=== PATIENT | male | born 1950 | race Caucasian/White ===

== ENCOUNTER 2020-02-15 09:45 | Inpatient (IN) ==
[2020-02-15] MEDS ORDERED: SODIUM CHLORIDE 0.9% 1000ML 1,000 ML IV SCH ×2 (10:15→13:30)
[2020-02-15 10:21] LABS: Basophils # (auto) 0.03 K/uL (0-0.2); Basophils % (auto) 0.3 %; Eosinophils # (auto) 0.14 K/uL (0-0.5); Eosinophils % (auto) 1.5 %; Hemoglobin 17.1 g/dL (14.0-18.0); Immature Granulocytes # (auto) 0.04 K/uL (0.00-0.02); Immature Granulocytes % (auto) 0.4 %; Lymphocytes # (auto) 0.82 K/uL (1.2-3.4); Mean Corpuscular Hemoglobin 29.3 pg (25-34); Mean Corpuscular Hgb Conc 34.2 g/dL (32-36); Mean Corpuscular Volume 85.6 fL (80-100); Mean Platelet Volume 11.7 fL (7.4-10.4); Monocytes # (auto) 0.49 K/uL (0.11-0.59); Monocytes % (auto) 5.4 %; Neutrophils # (auto) 7.57 K/uL (1.4-6.5); Neutrophils % (auto) 83.4 %; Platelet Count 160 K/uL (130-400); RDW Coefficient of Variation 13.5 % (11.5-14.5); RDW Standard Deviation 41.9 fL (36.4-46.3); Red Blood Count 5.84 M/uL (4.7-6.1); White Blood Count 9.09 K/uL (4.8-10.8)
--- NOTE | 2020-02-15 10:24 | Emergency Department Note ---
History of Present Illness General Chief complaint: Syncope (Near Syncope) Stated complaint: PASSING OUT Time Seen by Provider: 02/15/20 10:01 History of Present Illness Provider complaint: Syncope twice Onset (ago): hour(s) 2 (One episode at 7 AM and one episode at 7:30 AM) Associated symptoms: + diaphoresis; no chest pain, no cough, no fever/chills, no headaches, no nausea/vomiting and no shortness of breath 70-year-old male presents emergency department for syncope. Patient reports he had 2 syncopal episodes today 1 at 7 AM and 1 at 730. Patient reports he possi rita hit his head. He denies any chest pain, difficulty breathing, hemoptysis, recent travel, nausea, vomiting, diarrhea, melena, hematochezia, hematuria, loss of taste or smell. Home Medications Home Medications Medication Instructions Recorded Confirmed Type atorvastatin 10 mg PO DAILY 02/15/20 02/15/20 History docusate sodium 100 mg PO BID 02/15/20 02/15/20 History losartan 25 mg PO BID 02/15/20 02/15/20 History metformin 1,000 mg PO BID 02/15/20 02/15/20 History multivitamin 1 tab PO DAILY 02/15/20 02/15/20 History tamsulosin 0.4 mg PO QPM 02/15/20 02/15/20 History Allergies Allergy/AdvReac Type Severity Reaction Status Date / Time No Known Allergies Allergy Unverified 02/15/20 11:16 Past Med/Surg History Medical History (Updated 02/15/20 @ 12:17 by Florin Rendon MD) Diabetes HLD (hyperlipidemia) HTN (hypertension) No pertinent family history Surgical History (Updated 02/15/20 @ 10:20 by Kevin Blankenship) No pertinent past surgical history Social History Preferred Language: Icelandic Feels Safe at Home: Yes Smoking Status: Former smoker Review of Systems A total of 10 systems reviewed and were otherwise negative Physical Exam Vital Signs Vital Signs - 24 hr 02/15/20 09:50 02/15/20 10:18 02/15/20 10:21 Temperature 36.8 C Temperature Source Oral Pulse Rate - Lying Pulse Rate - Sitting Pulse Rate - Standing Pulse Rate 64 58 L Pulse Rate [Right Finger] 58 L Pulse Rate from SpO2 Sensor Pulse Rhythm Regular Pulse Strength Normal Respiratory Rate 20 24 Respiratory Effort / Characteristics Non-Labored Spontaneous Respiratory Depth Normal Respiratory Pattern Regular Blood Pressure - Lying Blood Pressure - Sitting Blood Pressure- Standing Blood Pressure 114/70 Blood Pressure [Right Arm] 117/63 Blood Pressure Mean 84 Blood Pressure Mean [Right Arm] 81 Blood Pressure Position Sitting Pulse Oximetry 98 96 Oxygen Delivery Method Room Air Room Air Room Air Sepsis Recent Fever Within 48 Hours No Sepsis New/Unexplained Change in Mental Status No Sepsis Action Taken by Nursing No Action Required 02/15/20 11:00 02/15/20 11:30 02/15/20 12:00 Temperature Temperature Source Pulse Rate - Lying Pulse Rate - Sitting Pulse Rate - Standing Pulse Rate 51 L 50 L 49 L Pulse Rate [Right Finger] Pulse Rate from SpO2 Sensor 50 L 49 L Pulse Rhythm Pulse Strength Respiratory Rate 17 12 21 Respiratory Effort / Characteristics Respiratory Depth Respiratory Pattern Blood Pressure - Lying Blood Pressure - Sitting Blood Pressure- Standing Blood Pressure 128/54 L 112/61 121/58 L Blood Pressure [Right Arm] Blood Pressure Mean 66 81 77 Blood Pressure Mean [Right Arm] Blood Pressure Position Pulse Oximetry 97 98 96 Oxygen Delivery Method Sepsis Recent Fever Within 48 Hours Sepsis New/Unexplained Change in Mental Status Sepsis Action Taken by Nursing 02/15/20 12:10 Temperature Temperature Source Pulse Rate - Lying 54 L Pulse Rate - Sitting 66 Pulse Rate - Standing 70 Pulse Rate Pulse Rate [Right Finger] Pulse Rate from SpO2 Sensor Pulse Rhythm Pulse Strength Respiratory Rate Respiratory Effort / Characteristics Respiratory Depth Respiratory Pattern Blood Pressure - Lying 112/59 L Blood Pressure - Sitting 122/62 Blood Pressure- Standing 130/54 L Blood Pressure Blood Pressure [Right Arm] Blood Pressure Mean Blood Pressure Mean [Right Arm] Blood Pressure Position Pulse Oximetry Oxygen Delivery Method Sepsis Recent Fever Within 48 Hours Sepsis New/Unexplained Change in Mental Status Sepsis Action Taken by Nursing Physical Exam GENERAL: He is oriented to person, place, and time. He appears well-developed and well-nourished. He does not appear distressed. HENT: Exam performed. - Head: Normocephalic and atraumatic. - Right Ear: External ear normal. No mastoid tenderness. - Left Ear: External ear normal. No mastoid tenderness. - Mouth/Throat: The oropharynx is clear and moist. No trismus in the jaw. No dental abscesses or uvula swelling. No oropharyngeal exudate or tonsillar abscesses. EYES: Conjunctivae and EOM are normal. Pupils are equal, round, and reactive to light. Right eye exhibits no discharge. Left eye exhibits no discharge. No scleral icterus. NECK: Normal range of motion. Neck supple. No JVD present. No spinous process tenderness present. No carotid bruit present. No rigidity. No tracheal deviation and normal range of motion present. No Brudzinski's sign and no Kernig's sign noted. CV: Normal rate, regular rhythm, normal heart sounds and intact distal pulses. There is no peripheral edema. Palpable radial pulses bue. PULM/CHEST: Effort normal and breath sounds normal. No respiratory distress. No stridor. He has no wheezes. He has no rales. - Chest Wall: He exhibits no tenderness. ABD: The abdomen is soft. Bowel sounds are normal. He has no distension. No mass is present. There is no tenderness. There is no rebound, no guarding, no Tate's sign and no tenderness at McBurney's point. Rovsig negative. MUSC/SKEL: Normal range of motion. There is no peripheral edema, tenderness or deformity. LYMPH: No cervical adenopathy. NEURO: He is alert and oriented to person, place, and time. He has normal strength. No cranial nerve deficit or sensory deficit. Coordination and gait normal. GCS eye subscore is 4. GCS verbal subscore is 5. GCS motor subscore is 6. Cerebellar tests wnl. SKIN: Skin is warm and dry. He is not diaphoretic. PSYCH: He has a normal mood and affect. Behavior is normal. Judgment and thought content normal. Course Course 1005: The patient was evaluated in room C6. A complete history and physical exam was performed. An order was placed for continuous cardiac monitoring. The monitor shows a rate of 60 with sinus rhythm 1204: Vital signs stable. Labs and imaging within normal limits. Patient was offered outpatient follow-up for syncope versus inpatient observation. After discussion with his via their cell phone the patient decided to stay in the hospital for observation for syncope. Discussed with Dr. Slater who states he will evaluate the patient, he recommends patient have formal orthostatic vital signs be done also. Administered Medications Discontinued Medications Sodium Chloride (Nss 1000ml) 1,000 mls @ 999 mls/hr IV .Q1H1M BULL Stop: 02/15/20 11:15 Last Infusion: 02/15/20 11:30 Dose: 0 mls/hr Documented by: [id number] Admin: 02/15/20 10:29 Dose: 999 mls/hr Documented by: [id number] Morphine Sulfate (Morphine Sulfate) 2 mg IM NOW STA Stop: 02/15/20 12:00 Last Admin: 02/15/20 12:08 Dose: Not Given Documented by: [id number] Medical Decision Making Laboratory Data Result diagrams: 02/15/20 10:10 02/15/20 10:10 Lab Results 02/15/20 02/15/20 02/15/20 Range/Units 10:10 10:10 10:10 WBC 9.09 (4.8-10.8) K/uL RBC 5.84 (4.7-6.1) M/uL Hgb 17.1 (14.0-18.0) g/dL Hct 50.0 (42-52) % MCV 85.6 (80-100) fL MCH 29.3 (25-34) pg MCHC 34.2 (32-36) g/dL RDW Std Deviation 41.9 (36.4-46.3) fL RDW Coeff of Prabhjot 13.5 (11.5-14.5) % Plt Count 160 (130-400) K/uL MPV 11.7 H (7.4-10.4) fL Immature Gran % (Auto) 0.4 % Neut % (Auto) 83.4 % Lymph % (Auto) 9.0 % Turner % (Auto) 5.4 % Eos % (Auto) 1.5 % Baso % (Auto) 0.3 % Neut # (Auto) 7.57 H (1.4-6.5) K/uL Lymph # (Auto) 0.82 L (1.2-3.4) K/uL Turner # (Auto) 0.49 (0.11-0.59) K/uL Eos # (Auto) 0.14 (0-0.5) K/uL Baso # (Auto) 0.03 (0-0.2) K/uL Immature Gran # (Auto) 0.04 H (0.00-0.02) K/uL PT 11.9 (9.0-12.0) Seconds INR 1.1 (0.9-1.1) APTT 29.2 (21.0-31.0) Seconds PTT Ratio 1.0 D-Dimer 280 (0-500) ug/L FEU Sodium 136 (136-145) mmol/L Potassium 4.1 (3.5-5.1) mmol/L Chloride 104 (98-107) mmol/L Carbon Dioxide 27 (21-32) mmol/L Anion Gap 5.0 (3-11) BUN 20 H (7-18) mg/dl Creatinine 1.20 (0.6-1.4) mg/dl Est Cr Clr Drug Dosing 70.2 ml/min Est GFR ( Amer) 70.6 Est GFR (Non-Af Amer) 60.9 BUN/Creatinine Ratio 16.3 (10-20) Glucose 293 H (70-99) mg/dl POC Glucose (70-99) mg/dl Calcium 9.6 (8.5-10.1) mg/dl Troponin I < 0.015 (0-0.045) ng/ml Lipase 120 (73-393) U/L 02/15/20 Range/Units 10:15 WBC (4.8-10.8) K/uL RBC (4.7-6.1) M/uL Hgb (14.0-18.0) g/dL Hct (42-52) % MCV (80-100) fL MCH (25-34) pg MCHC (32-36) g/dL RDW Std Deviation (36.4-46.3) fL RDW Coeff of Prabhjot (11.5-14.5) % Plt Count (130-400) K/uL MPV (7.4-10.4) fL Immature Gran % (Auto) % Neut % (Auto) % Lymph % (Auto) % Turner % (Auto) % Eos % (Auto) % Baso % (Auto) % Neut # (Auto) (1.4-6.5) K/uL Lymph # (Auto) (1.2-3.4) K/uL Turner # (Auto) (0.11-0.59) K/uL Eos # (Auto) (0-0.5) K/uL Baso # (Auto) (0-0.2) K/uL Immature Gran # (Auto) (0.00-0.02) K/uL PT (9.0-12.0) Seconds INR (0.9-1.1) APTT (21.0-31.0) Seconds PTT Ratio D-Dimer (0-500) ug/L FEU Sodium (136-145) mmol/L Potassium (3.5-5.1) mmol/L Chloride (98-107) mmol/L Carbon Dioxide (21-32) mmol/L Anion Gap (3-11) BUN (7-18) mg/dl Creatinine (0.6-1.4) mg/dl Est Cr Clr Drug Dosing ml/min Est GFR ( Amer) Est GFR (Non-Af Amer) BUN/Creatinine Ratio (10-20) Glucose (70-99) mg/dl POC Glucose 262 H (70-99) mg/dl Calcium (8.5-10.1) mg/dl Troponin I (0-0.045) ng/ml Lipase (73-393) U/L Imaging Data Radiologist's Impression: CT OF THE HEAD WITHOUT CONTRAST CLINICAL HISTORY: syncope X2 possible hit head COMPARISON STUDY: No previous studies for comparison. CT DOSE: 614.27 mGy.cm TECHNIQUE: Helical axial images of the head were obtained without IV contrast. Automated exposure control was utilized for the study. A dose lowering technique was utilized adhering to the principles of ALARA. FINDINGS: No acute intracranial hemorrhage, midline shift or mass effect is present. The ventricular system is unremarkable. The basilar cisterns are patent. No extra-axial collections are present. There are no findings to suggest acute dural sinus thrombosis or acute territorial infarct. No significant calvarial abnormalities are present. Visualized portions of the sinuses and mastoid air cells are clear. IMPRESSION: 1. No acute intracranial findings. 2. No calvarial fracture. ACT 112: Negative or not required by law. Electronically signed by: Filiberto Hopkins M.D. 02/15/2020 10:55 AM Dictated: 02/15/20 1053 Transcribed: 02/15/20 1053 XR chest 2V PA/lateral CLINICAL HISTORY: Chest Pain COMPARISON STUDY: No previous studies for comparison. FINDINGS: Lung volumes are normal. Lungs are clear. There is no pneumothorax or pleural effusion. Cardiac size is normal. Mediastinal contours are normal. There is no evidence for pulmonary edema. Lateral view demonstrates extensive anterior osteophytosis of the thoracic spine and upper abdominal surgical clips. IMPRESSION: No acute cardiopulmonary findings. ACT 112: Negative or not required by law. Electronically signed by: Filiberto Hopkins M.D. 02/15/2020 11:24 AM Dictated: 02/15/201121 Transcribed: 02/15/201121 ECG Data Additional Comments: EKG 1 at 0959: Sinus tachycardia with a rate of 134. UT interval 240. QRS and QTc intervals within normal limits. No ST elevation or ST depression. Left ventricular hypertrophy present. EKG 2 at 1002: Sinus bradycardia with a rate of 53. UT QRS and QTc intervals within normal limits. Left ventricular hypertrophy present. No ST elevation or ST depression. MDM Narrative 1005: The patient was evaluated in room C6. A complete history and physical exam was performed. An order was placed for continuous cardiac monitoring. The monitor shows a rate of 60 with sinus rhythm 1204: Vital signs stable. Labs and imaging within normal limits. Patient was offered outpatient follow-up for syncope versus inpatient observation. After discussion with his via their cell phone the patient decided to stay in the hospital for observation for syncope. Discussed with Dr. Slater who states he will evaluate the patient, he recommends patient have formal orthostatic vital signs be done also. Impression & Plan Syncope Discharge Plan Visit Data Chief Complaint: Syncope (Near Syncope) Stated Complaint: PASSING OUT ED Provider: Kevin Blankenship Discharge Problem: Syncope Patient Disposition: Being Evaluated by Hospitalist Forms Stand Alone Forms: [facility] [place] [facility] Prescriptions Prescriptions: No Action multivitamin Tablet 1 tab PO DAILY RF: 0 atorvastatin 20 mg Tablet 10 mg PO DAILY RF: 0 tamsulosin 0.4 mg Capsule 0.4 mg PO QPM RF: 0 metformin 1,000 mg Tablet 1,000 mg PO BID RF: 0 losartan 25 mg Tablet 25 mg PO BID RF: 0 docusate sodium 100 mg Tablet 100 mg PO BID RF: 0 Referrals Referrals: PCP,NO [Primary Care Provider] - Discharge Problem: Syncope Qualifiers: Syncope type: unspecified Qualified Code(s): R55 - Syncope and collapse
[2020-02-15 10:37] LABS: BUN Creatinine Ratio 16.3 (10-20); Blood Urea Nitrogen 20 mg/dl (7-18); Calcium 9.6 mg/dl (8.5-10.1); Carbon Dioxide 27 mmol/L (21-32); Chloride 104 mmol/L (98-107); Creatinine Clr Calc Pharmacy 70.2 ml/min; Est GFR (African American) 70.6; Est GFR (Non-African American) 60.9; Glucose 293 mg/dl (70-99); Lipase 120 U/L (73-393); Potassium 4.1 mmol/L (3.5-5.1); Sodium 136 mmol/L (136-145)
[2020-02-15 10:42] LABS: Troponin I < 0.015 ng/ml (0-0.045)
[2020-02-15 10:55] LABS: D Dimer 280 ug/L FEU (0-500); INR 1.1 (0.9-1.1); Partial Thromboplastin Time 29.2 Seconds (21.0-31.0); Prothrombin Time 11.9 Seconds (9.0-12.0)
--- NOTE | 2020-02-15 10:57 | CT Scan Report ---
CT OF THE HEAD WITHOUT CONTRAST CLINICAL HISTORY: syncope X2 possible hit head COMPARISON STUDY: No previous studies for comparison. CT DOSE: 614.27 mGy.cm TECHNIQUE: Helical axial images of the head were obtained without IV contrast. Automated exposure con trol was utilized for the study. A dose lowering technique was utilized adhering to the principles o f ALARA. FINDINGS: No acute intracranial hemorrhage, midline shift or mass effect is present. The ventricular system is unremarkable. The basilar cisterns are patent. No extra-axial collections are present. Ther e are no findings to suggest acute dural sinus thrombosis or acute territorial infarct. No significan t calvarial abnormalities are present. Visualized portions of the sinuses and mastoid air cells are c lear. IMPRESSION: 1. No acute intracranial findings. 2. No calvarial fracture. ACT 112: Negative or not required by law. Electronically signed by: Filiberto Hopkins M.D. 02/15/2020 10:55 AM
--- NOTE | 2020-02-15 11:25 | XRay Report ---
XR chest 2V PA/lateral CLINICAL HISTORY: Chest Pain COMPARISON STUDY: No previous studies for comparison. FINDINGS: Lung volumes are normal. Lungs are clear. There is no pneumothorax or pleural effusion. Car diac size is normal. Mediastinal contours are normal. There is no evidence for pulmonary edema. Later al view demonstrates extensive anterior osteophytosis of the thoracic spine and upper abdominal surgi skyler clips. IMPRESSION: No acute cardiopulmonary findings. ACT 112: Negative or not required by law. Electronically signed by: Filiberto Hopkins M.D. 02/15/2020 11:24 AM
[2020-02-15] MEDS ORDERED: MoRPHine SULFATE 10 MG/ML CARP/VIAL IM STA (11:59)
--- NOTE | 2020-02-15 12:15 | History & Physical Report ---
Date of Service February 15, 2020 Assessment & Plan (1) Syncope: Patient reported he had 2 syncopal events in the [place] and had periods of narrow complex rapid tachycardia here in the emergency department. He is markedly hyperglycemic and he may be dehydrated based upon that fact. Orthostatics are negative. 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 However now the patient is asymptomatically bradycardic at this time. Patient will have troponins checked an echocardiogram performed Lyme disease and TSH will be checked. Will wait on cardiology consultation until we have further information such as the above listed testing record in the chart in addition have a more understanding of the patient's heart rhythm whether bradycardic or recurrent tachycardic. (2) Diabetes: His diabetes is obviously poor control at this point in time he is only on metformin as an outpatient. We will hold metformin and institute sliding scale insulin check a hemoglobin A1c in the morning put him on a carbohydrate cons ervative diet (3) HTN (hypertension): Traditionally taking losartan for hypertension and also taking tamsulosin for BPH at this time losartan will be held at this time until we have a better control on his blood pressure readings and orthostasis. (4) HLD (hyperlipidemia): Atorvastatin 10 will be continued (5) DVT prophylaxis: DVT prevention will be heparin History of Present Illness Primary Care Provider: NO PCP 70 -year-old male presents emergency department for syncope. Patient reports he had 2 syncopal episodes today 1 at 7 AM and 1 at 730. Patient reports he possibly hit his head this patient had a negative CT head in the ED. Person has been having difficulty with controlling his diabetes [facility] and only being on [facility]. Here in the emergency department his blood sugars are 260. Patient states that he did have some preceding symptoms prior to passing out where he felt lightheaded. He denies vertiginous symptoms. In the emergency department there appears to be of some retrograde P waves seen on his EKG suggesting a reentrant tachycardia. Patient denies ever having any discussion of SVT or tachycardia in his past history. Usually after the event he is not orthostatic but he is with sinus bradycardia rates in the 50s he is not symptomatic with this rate. He has had tick bites in the past but says he is never been tested for Lyme disease was recently had a tick bite 1 year ago he recalls pulling a tick off his body and discussing it with his family doctor but does not recall being treated with doxycycline or any other antibiotic for this. He denies any chest pain, difficulty breathing, hemoptysis, recent travel, nausea, vomiting, diarrhea, melena, hematochezia, hematuria, loss of taste or sm Allergies Allergy/AdvReac Type Severity Reaction Status Date / Time No Known Allergies Allergy Unverified 02/15/20 11:16 Home Medications Home Medications Medication Instructions Recorded Confirmed Type atorvastatin 10 mg PO DAILY 02/15/20 02/15/20 History docusate sodium 100 mg PO BID 02/15/20 02/15/20 History losartan 25 mg PO BID 02/15/20 02/15/20 History metformin 1,000 mg PO BID 02/15/20 02/15/20 History multivitamin 1 tab PO DAILY 02/15/20 02/15/20 History tamsulosin 0.4 mg PO QPM 02/15/20 02/15/20 History Past Med/Surg History Medical History (Updated 02/15/20 @ 13:14 by Florin Rendon MD) Diabetes HLD (hyperlipidemia) HTN (hypertension) No pertinent family history Surgical History (Updated 02/15/20 @ 10:20 by Kevin Blankenship) No pertinent past surgical history Family History (Updated 02/15/20 @ 13:14 by Florin Rendon MD) Father Coronary heart disease Hypertension Diabetes Social History Preferred Language: [place] Feels Safe at Home: Yes Smoking Status: Former smoker Review of Systems Review of Systems: Patient currently is without distress or fatigue no headache, blurry or double vision no speech or swallowing issues no chest pain, pressure or palpitations no shortness of breath, cough or wheezes no abdominal pain, nausea or vomiting, diarrhea or constipation no dysuria, hematuria or frequency no focal joint pain or swelling no back pain, CVA tenderness or radicular pain no bruising, bleeding or rashes no focal signs of weakness or numbness or altered sensation no complaints or anxiety or depression. Physical Exam Physical Exam: The patient appeared well nourished and normally developed. Vital signs as documented. Head exam is normocephalic atraumatic no scleral icterus Neck is without JVD, thyromegaly, or carotid bruits. Lungs are clear to auscultation, no focal loss of breath sounds Cardiac exam, Rhythm is regular but bradycardic.. No murmurs, rubs or gallops. Abdominal exam reveals normal bowel sounds, soft non tender, no masses Extremities are nonedematous and both pedal pulses are normal. Neurologic exam is alert and oriented, no focal loss of strength or sensation Skin is without bruises or rashes Psychologically is without concerns for anxiety or depression Results & Data Results & Data ([facility]) Vital Signs (Past 12 Hours) Vital Signs Temp Pulse Pulse Resp BP BP Pulse Ox 02/15/20 11:30 50 L 12 112/61 98 02/15/20 11:00 51 L 17 128/54 L 97 02/15/20 10:21 58 L 24 117/63 96 02/15/20 10:18 58 L 02/15/20 09:50 98.2 F 64 20 114/70 98 PG Care Time/CCT Total # of Minutes Spent Total Time Spent with Patient: Total time spent is greater than 50% in coordination of care (as documented) at patient's floor/unit and/or counseling patient: Coding Level of Care Code 16235 Initial Inpt Care Lvl 3 Diagnoses Syncope R55 Syncope type: unspecified Diabetes E11.9 HTN (hypertension) I10 HLD (hyperlipidemia) E78.5 DVT prophylaxis Z29.9 (1) Syncope Syncope type: unspecified Qualified Code(s): R55 - Syncope and collapse
[2020-02-15] MEDS ORDERED: DEXTROSE 50% 50 ML SYRINGE IV PRN (13:30)
[2020-02-15] MEDS ORDERED: GLUCOSE 10 TABS/TUBE PO PRN (13:30)
[2020-02-15] MEDS ORDERED: NITROGLYCERIN SL 0.4 MG/TAB TAB SL PRN (13:30)
[2020-02-15] MEDS ORDERED: ONDANSETRON INJ 2 MG/ML 2 ML VIAL IV PRN (13:30)
[2020-02-15] MEDS ORDERED: GLUCAGON FOR INJ 1 MG VIAL SQ PRN (13:30)
[2020-02-15] MEDS ORDERED: ACETAMINOPHEN 325 MG TAB PO PRN (13:30)
[2020-02-15] MEDS ORDERED: GLUCOSE 40% GEL 15 GM TUBE PO PRN (13:30)
[2020-02-15] MEDS ORDERED: CARBOHYDRATES FOR HYPOGLYCEMIA PO PRN (13:30)
[2020-02-15] MEDS ORDERED: ALUMINUM/MAGNESIUM SUSP 30 ML UDC PO PRN (13:30)
[2020-02-15] MEDS ORDERED: MoRPHine SULFATE 2 MG/ML CARP IV PRN (13:30)
[2020-02-15] MEDS ORDERED: ENOXAPARIN INJ 40 MG/0.4 ML SYR SQ SCH (14:00)
[2020-02-15 14:25] LABS: Magnesium 2.1 mg/dl (1.8-2.4); Thyroid Stimulating Hormone 0.839 uIu/ml (0.300-4.500)
--- NOTE | 2020-02-15 14:39 | Electrocardiogram Report ---
Test Reason : Blood Pressure : / mmHG Vent. Rate : 134 BPM Atrial Rate : 000 BPM P-R Int : 000 ms QRS Dur : 078 ms QT Int : 324 ms P-R-T Axes : 000 002 061 degrees QTc Int : 483 ms Supraventricular tachycardia Nonspecific ST abnormality Abnormal ECG No previous ECGs available Confirmed by Mitch Matthew ([id number]) on 02/15/2020 2:39:19 PM Referred By: REFERRED SELF Confirmed By:Mitch Matthew
[2020-02-15] MEDS: INSULIN ASPART 100 UNITS/ML 3 ML PEN SC SCH ×2 (17:13→21:09)
[2020-02-15] MEDS: DOCUSATE SODIUM 100 MG CAP PO SCH (20:23)
[2020-02-15] MEDS ORDERED: TAMSULOSIN HCL 0.4 MG CAP PO SCH (21:00)
[2020-02-15 22:58] LABS: Lyme Ab IgG w/WB Rflx Negative (Negative); Lyme Ab IgM w/WB Rflx Negative (Negative)
[2020-02-16 07:40] LABS: BUN Creatinine Ratio 14.6 (10-20); Calcium 9.2 mg/dl (8.5-10.1); Creatinine Clr Calc Pharmacy 87.5 ml/min; Est GFR (African American) 92.4; Est GFR (Non-African American) 79.8; Potassium 3.8 mmol/L (3.5-5.1)
[2020-02-16] MEDS: DOCUSATE SODIUM 100 MG CAP PO SCH (07:50)
[2020-02-16] MEDS: INSULIN ASPART 100 UNITS/ML 3 ML PEN SC SCH (07:51)
[2020-02-16] MEDS ORDERED: ASPIRIN 81 MG ECTAB PO SCH (09:00)
[2020-02-16] MEDS ORDERED: ATORVASTATIN 10 MG TAB PO SCH (09:00)
--- NOTE | 2020-02-16 11:37 | Discharge Summary ---
Date of Service February 16, 2020 Admission HPI Per Admitting Provider 70 -year-old male presents emergency department for syncope. Patient reports he had 2 syncopal episodes today 1 at 7 AM and 1 at 730. Patient reports he possibly hit his head this patient had a negative CT head in the ED. Person has been having difficulty with controlling his diabetes [facility] and only being [facility]. Here in the emergency department his blood sugars are 260. Patient states that he did have some preceding symptoms prior to passing out where he felt lightheaded. He denies vertiginous symptoms. In the emergency department there appears to be of some retrograde P waves seen on his EKG suggesting a reentrant tachycardia. Patient denies ever having any discussion of SVT or tachycardia in his past history. Usually after the event he is not orthostatic but he is with sinus bradycardia rates in the 50s he is not symptomatic with this rate. He has had tick bites in the past but says he is never been tested for Lyme disease was recently had a tick bite 1 year ago he recalls pulling a tick off his body and discussing it with his family doctor but does not recall being treated with doxycycline or any other antibiotic for this. He denies any chest pain, difficulty breathing, hemoptysis, recent travel, nausea, vomiting, diarrhea, melena, hematochezia, hematuria, loss of taste or sm Principal Diagnosis Vasovagal syncope Discharge Exam Constitutional WD/WN, vitals as above Eyes PERRL, conjunctivae normal, anicteric sclerae Neck normal visual inspection Respiratory normal respiratory effort, lungs clear to auscultation Cardiovascular Rate/Rhythm: regular rate and regular rhythm Heart Sounds: normal S1 and normal S2; no gallop, no murmur and no cardiac rub Vessels: normal peripheral pulses; no JVD Extremities: no pedal edema Gastrointestinal (Abdomen) normal bowel sounds, soft, nontender, no hepatosplenomegaly Musculoskeletal no cyanosis or clubbing, extremities motor strength 5/5 Skin no rashes, warm and dry Neurologic patellar DTR's 2+ bilat, sensation intact CN's II-XI intact bilaterally Psychiatric A+Ox3, euthymic affect Discharge Data Allergies Allergy/AdvReac Type Severity Reaction Status Date / Time No Known Allergies Allergy Unverified 02/15/20 11:16 Consultations 02/15/20 11:51 ED Decision to Admit Stat Ordered Studies 02/15/20 10:24 CT head/brain wo con Stat Hospital Course (1) Syncope: 70 -year-old male presents emergency department for syncope. Patient reports he had 2 syncopal episodes prior to admission; 1 at 7 AM and 1 at 730. Syncope: - likely 2/2 vasovagal, patient perceives growing warmth over body prior to syncopal episodes, overlying dehydration - advised patient to increase hydration, and monitor for recurrence of episodes - troponins negative x2 - telemetry demonstrated no arrhythmias, bradycardia - EKG with no ST depressions - Echo demonstrated normal LV function, EF 55-60%, mild aortic regurgitation, moderate aortic root dilation - Orthostatic BP: lying 134/66 HR 56, sitting 142/68 HR 60, standing 156/81 HR 64 - could consider 30 day event monitor for continued cardiac monitoring to rule out arrhythmias. T2DM: - continue Metformin 1000mg BID - recommend glucometer for regular glucose checks HTN: - continue Losartan 25mg BID HLD: - continue atorvastatin 10mg BPH: - continue tamsulosin daily (2) Diabetes: (3) HTN (hypertension): (4) HLD (hyperlipidemia): Total Time Total Time Spent Total Time Spent (In Minutes): 30 Discharge Plan Discharge Items Patient Disposition: Home - Self-Care Reason For Visit: SYNCOPE,UNCONTROLLED DM,SVT/RE ENTY TACHYCARDIA Discharge Diagnosis: Syncope Activity: Per Instructions section Non-emergency contact: Primary Care Provider Call non-emergency contact if: you have any medication questions, your symptoms worsen and you have a fever Follow-up/Referrals: PCP,NO [Primary Care Provider] - Diet: Carb Consistent or DM2 Addtl Attending Provider Instructions: You were seen and admitted following having to episodes at home in which you passed out. There are a variety of reasons for which someone can collapse while standing. During this admission, we monitored for changes to the electrical activity of your heart, changes to your heart function, and for changes to your blood pressure when standing up. These monitoring tests did not reproduce your symptoms, and as such the most likely explanation of your symptoms is what is called vasovagal syncope. This can be caused by dehydration, and as a result if you continue to appropriately hydrate with water and electrolytes these should not re-occur. If you feel the warmth that you described coming on, it is important that you stop what you are doing as quickly and as safely as possible and either sit or lay down until it passes. Pending Studies at Discharge: No Stand-Alone Forms: [facility], Smoking Cessation Medications and DC Order Prescriptions: Continued multivitamin Tablet 1 tab PO DAILY RF: 0 atorvastatin 20 mg Tablet 10 mg PO DAILY RF: 0 tamsulosin 0.4 mg Capsule 0.4 mg PO QPM RF: 0 metformin 1,000 mg Tablet 1,000 mg PO BID RF: 0 losartan 25 mg Tablet 25 mg PO BID RF: 0 docusate sodium 100 mg Tablet 100 mg PO BID RF: 0 Discharge Orders: Discharge Order (Routine); Ordered 02/16/20 Ordered By: Dago Soto Admission Data Admit Date/Time: 02/15/20 12:35 Attending Provider: Yamilex Joya Admit Provider: Florin Rendon Primary Care Provider: PCP,NO Other Providers: Florin Rendon Other Interventions: Discharge Summary Assessment (RN) Last Done: 02/16/20 11:34 DC Date/Time DO NOT enter until pt leaves facility: 02/16/20 12:50 Supervising Physician Co-Signing Physician Notes Resident Physician Supervision Note: I independently interviewed and examined the patient and verified the wade history and physical, reviewed labs and image studies, discussed the case with the resident Dr. Soto and agree with the findings and care plan. Resident Activity Tracking Resident Involvement: Resident Care Provided Care Provided: Adult Hospital Medicine
--- NOTE | 2020-02-16 12:00 | XCELERA ---
[id number]
[2020-02-17 06:10] LABS: Estimated Average Glucose 189 mg/dl; Hemoglobin A1C 8.2 % (4.5-5.6)
--- NOTE | 2020-02-18 05:49 | Electrocardiogram Report ---
Test Reason : Blood Pressure : / mmHG Vent. Rate : 053 BPM Atrial Rate : 053 BPM P-R Int : 188 ms QRS Dur : 084 ms QT Int : 452 ms P-R-T Axes : - 031 degrees QTc Int : 424 ms Sinus bradycardia Minimal voltage criteria for LVH, may be normal variant Borderline ECG When compared with ECG of 15-FEB-2020 09:59, Vent. rate has decreased BY 81 BPM Sinus rhythm has replaced Supraventricular tachycardia ST no longer depressed in Anterior leads Confirmed by Sandeep Diamond ([id number]) on 02/18/2020 5:48:51 AM Referred By: REFERRED SELF Confirmed By:Sandeep Diamond
== END 2020-02-16 12:50 | disposition home or self-care (01) | DRG 312 ==
LOC: ED 09:45 → 2S 12:35 → SUATTDRO 12:35 → 2S 13:12

== ENCOUNTER 2023-04-14 19:00 | Inpatient (IN) ==
[2023-04-14] MEDS ORDERED: SODIUM CHLORIDE 0.9% 1,000 ML IV SCH (20:00)
--- NOTE | 2023-04-14 20:07 | Emergency Department Note ---
Impression & Plan Syncope, SVT (supraventricular tachycardia) ED Provider Note CHIEF COMPLAINT: Syncope HISTORY OF PRESENT ILLNESS: This 73-year-old male patient presents to the emergency department via private vehicle for evaluation after a syncopal episode. The patient states he was to have an ablation completed yesterday. He had the catheterization portion completed, but was told that his heart rate was too slow and they elected not to proceed with the ablation portion of the procedure. The patient states he was discharged yesterday was doing well. He notes today, he was shopping with his grandson when he began feeling very hot. He notes that he tried telling his grandson that he was not feeling well and he might pass out, but before he was able to tell him, he passed out and struck the floor. The patient reports he did hit his head and states his hearing aids went flying. The patient notes that this only lasted a few seconds before his symptoms improved and he was able to leave. He contacted the on-call technical support associate and was referred to the emergency department for evaluation of the syncopal episode. The patient states that he has had several of these episodes over the past 2 to 3 weeks. These were believed to be due to SVT, but now concerned that they may be due to bradycardia. The patient states that this time, he is experiencing some left-sided shoulder blade and chest pain worse with certain movements and with going over bumps on the way here to the emergency department. The patient denies any abdominal pain, nausea, or vomiting. No weakness, numbness, or tingling. He denies any chest pain or shortness of breath prior to the onset of the syncopal episode. He states the previous episode a few weeks ago was while he was driving. He notes that a family member was in the car with him and he kept his foot on the brake. He states that episode lasted only a few seconds before his family member took over the driving. He denies any palpitations. He is feeling back to his baseline at this time. Patient is not currently taking any blood thinners. REVIEW OF SYSTEMS: A 10 system review of systems was performed with positives and pertinent negatives listed in the history of present illness. All other systems were reviewed and are negative. ALLERGIES: None PHYSICAL EXAM: VITALS: Vitals are noted on the nurse's note and reviewed by myself. Vital si gns stable. GENERAL: This is a 73-year-old male, in no acute distress, nondiaphoretic, well-developed well-nourished. SKIN: The skin was without rashes, erythema, edema, or bruising. There is no te nting of the skin. Capillary refill less than 2 seconds. HEAD: Normocephalic atraumatic. EARS: External auditory canals clear, tympanic membranes pearly martinez without erythema or effusion bilaterally. No hemotympanum. Negative brink sign EYES: Pupils equal round and reactive to light and accommodation. Conjunctivae without injection, sclerae without icterus. Extraocular movements intact. NOSE: Patent, turbinates without inflammation or discharge. No sinus tenderness. MOUTH: Mucous membranes moist. Tonsils are not enlarged. Pharynx without erythema or exudate. Uvula midline. Airway patent. Tongue does not deviate. NECK: Supple without nuchal rigidity. No lymphadenopathy. No thyromegaly. Cervical spine is nontender. No JVD. HEART: Regular rate and rhythm without murmurs gallops or rubs. LUNGS: Clear to auscultation bilaterally without wheezes, rales or rhonchi. No retractions or accessory muscle use. ABDOMEN: Positive bowel sounds x 4. Soft, nontender, without masses or organomegaly. Tate sign negative. No guarding or rebound tenderness. MUSCULOSKELETAL: No muscle atrophy, erythema, or edema noted. Full range of motion without joint tenderness in all extremities. No tenderness to palpation. Normal gait. Strength 5/5 throughout. NEURO: Patient was alert and oriented to person place and time. Normal sensation to light and sharp touch. Deep tendon reflexes 2+ throughout. No focal neurological deficits. An order was placed for continuous conveyor monitor. The monitor showed a normal sinus rhythm at a ventricular rate of 63 bpm, per my interpretation. EKG, per my interpretation: Sinus rhythm with first-degree AV block with PACs. Ventricular rate of 66 bpm. PACs and first-degree AV block are new when compared to EKG completed yesterday. EMERGENCY DEPARTMENT COURSE: The patient was seen and evaluated as above. Previous medical records were reviewed. Work-up here in the emergency department completed as noted IV access obtained, labs drawn. Patient was hydrated with IV fluids. Labs reviewed. No leukocytosis, anemia, thrombocytopenia. INR 1.1. Renal, hepatic function and electrolytes without significant abnormality. High-sensitivity troponin 40, delta troponin 37. This is suspected to be associated with the patient's recent cardiac procedure yesterday. TSH 1.1. Urinalysis concerning for urinary tract infection with positive nitrites and bacteria. EKG completed and interpreted by me as above. Chest x-ray, CT imaging of the head and cervical spine were completed and reviewed by myself and radiologist as noted. Patient was medicated with IV ceftriaxone. I did discuss case with my attending physician. He did see and evaluate the patient. Recommendation made for inpatient care given the patient's multiple syncopal episodes over the past several weeks as well as as episodes of blacking out. I did discuss the case with the note and the hospitalist physician, Dr. Munoz. Please see hospitalist dictation regarding ongoing management care of this patient Differential diagnosis includes Vasovagal event, dehydration, infection, hypoglycemia, electrolyte abnormalities, cardiac sources, intracerebral event, pulmonary embolism, seizure, toxicologic, neurologic, as well as other pathologies. I attest that I have personally reviewed the patient's current medication list. Patient was found to have normal blood pressure on screening and does not require follow-up. The chart was completed utilizing [employer] Speech voice recognition software. Grammatical errors, random word insertions, pronoun errors, and incomplete sentences are an occasional consequence of this system due to software limitations, ambient noise, and hardware issues. Any formal questions or concerns about the content, text, or information contained within the body of this dictation should be directly addressed to the provider for clarification. Attending Attestation: I Johnson Robledo MD independently saw and evaluated this patient and agree with history and physical is otherwise documented by the physician surgical first assistant. See their note for full details. Patient in no distress. Hx of SVT and recent a blation eval yesterday followed by syncope today. Labs noted and question of UTI which maybe contributing. No evidence of trauma on CT reports. Will bring in for obs with tele given syncope and possibility of arrhythmia contributing with abx for uti. Past Med/Surg History Medical History Diabetes HLD (hyperlipidemia) HTN (hypertension) No pertinent family history Surgical History No pertinent past surgical history Family History Father Coronary heart disease Hypertension Diabetes Social History Smoking Status: Never smoker Hx Alcohol Use: No Hx Substance Use: No Preferred Language: Urdu Communication Ability: Effective Property Custodian Required: No Beliefs That Will Affect Care: None Current Living Situation: Spouse Feels Safe at Home: Yes Assistive Devices: Hearing Aid - Right Allergies Allergies Allergy/AdvReac Type Severity Reaction Status Date / Time No Known Allergies Allergy Verified 04/14/23 20:57 Home Meds Home Medications Medication Instructions Recorded Confirmed atorvastatin 20 mg tablet 10 mg PO DAILY 02/15/20 04/14/23 tamsulosin 0.4 mg capsule 0.4 mg PO QPM 02/15/20 04/14/23 alogliptin 25 mg tablet 25 mg PO DAILY 03/23/23 04/14/23 triamcinolone acetonide 0.5 % 1 applic topical DAILY PRN Itching 03/23/23 04/14/23 topical cream cinnamon bark 500 mg capsule 1,000 mg PO QDL 04/14/23 04/14/23 (Cinnamon) diltiazem HCl 240 mg 240 mg PO QDL 04/14/23 04/14/23 capsule,extended release 24 hr latanoprost 0.005 % eye drops 1 drp ophthalmic (eye) PM 04/14/23 04/14/23 metformin 850 mg tablet 850 mg PO BID 04/14/23 04/14/23 timolol maleate 0.5 % eye drops 1 drp ophthalmic (eye) DAILY 04/14/23 04/14/23 Results & Data (ED) Vital Signs Vital Signs - 24 hr 04/14/23 19:11 04/14/23 20:10 04/14/23 20:10 Temperature 36.3 C L Temperature Source Temporal Artery Scan Pulse Rate - Lying 65 Pulse Rate - Sitting 69 Pulse Rate - Standing 65 Pulse Rate 74 Pulse Rate [Apical] Pulse Rate from SpO2 Sensor Pulse Rhythm [Apical] Respiratory Rate 16 Respiratory Effort / Characteristics Non-Labored Spontaneous Respiratory Depth Normal Respiratory Pattern Blood Pressure - Lying 125/64 Blood Pressure - Sitting 124/74 Blood Pressure- Standing 127/63 Blood Pressure 130/71 Blood Pressure [Right Arm] Blood Pressure Mean 90 Blood Pressure Mean [Right Arm] Blood Pressure Position [Right Arm] Pulse Oximetry 97 96 Oxygen Delivery Method Room Air Room Air Sepsis Recent Fever Within 48 Hours No Sepsis New/Unexplained Change in Mental Status No Sepsis Action Taken by Nursing No Action Required 04/14/23 19:25 04/14/23 20:12 04/14/23 21:50 Temperature Temperature Source Pulse Rate - Lying Pulse Rate - Sitting Pulse Rate - Standing Pulse Rate 72 Pulse Rate [Apical] 61 64 Pulse Rate from SpO2 Sensor Pulse Rhythm [Apical] Regular Regular Respiratory Rate 18 18 Respiratory Effort / Characteristics Non-Labored Spontaneous Non-Labored Spontaneous Respiratory Depth Normal Normal Respiratory Pattern Regular Regular Blood Pressure - Lying Blood Pressure - Sitting Blood Pressure- Standing Blood Pressure Blood Pressure [Right Arm] 127/63 149/69 H Blood Pressure Mean Blood Pressure Mean [Right Arm] 84 95 Blood Pressure Position [Right Arm] Lying Pulse Oximetry 96 Oxygen Delivery Method Room Air Room Air Sepsis Recent Fever Within 48 Hours Sepsis New/Unexplained Change in Mental Status Sepsis Action Taken by Nursing 04/14/23 21:50 04/14/23 23:00 04/14/23 23:29 Temperature Temperature Source Pulse Rate - Lying Pulse Rate - Sitting Pulse Rate - Standing Pulse Rate 64 58 L 61 Pulse Rate [Apical] Pulse Rate from SpO2 Sensor 64 57 L 65 Pulse Rhythm [Apical] Respiratory Rate 16 16 20 Respiratory Effort / Characteristics Respiratory Depth Respiratory Pattern Blood Pressure - Lying Blood Pressure - Sitting Blood Pressure- Standing Blood Pressure 149/69 H 136/67 Blood Pressure [Right Arm] Blood Pressure Mean 95 90 Blood Pressure Mean [Right Arm] Blood Pressure Position [Right Arm] Pulse Oximetry 95 96 95 Oxygen Delivery Method Sepsis Recent Fever Within 48 Hours Sepsis New/Unexplained Change in Mental Status Sepsis Action Taken by Nursing 04/15/23 00:00 04/14/23 23:25 04/15/23 00:30 Temperature Temperature Source Pulse Rate - Lying Pulse Rate - Sitting Pulse Rate - Standing Pulse Rate 58 L 60 62 Pulse Rate [Apical] Pulse Rate from SpO2 Sensor 57 L 58 L Pulse Rhythm [Apical] Respiratory Rate 14 17 Respiratory Effort / Characteristics Respiratory Depth Respiratory Pattern Blood Pressure - Lying Blood Pressure - Sitting Blood Pressure- Standing Blood Pressure 133/59 L 133/59 L Blood Pressure [Right Arm] Blood Pressure Mean 83 83 Blood Pressure Mean [Right Arm] Blood Pressure Position [Right Arm] Pulse Oximetry 95 97 Oxygen Delivery Method Sepsis Recent Fever Within 48 Hours Sepsis New/Unexplained Change in Mental Status Sepsis Action Taken by Nursing Laboratory Data 04/14/23 19:44 04/14/23 19:44 Lab Results 04/14/23 04/14/23 04/14/23 Range/Units 19:44 19:44 19:44 WBC 10.27 (4.8-10.8) K/ul RBC 5.85 (4.70-6.10) M/uL Hgb 16.7 (14.0-18.0) g/dl Hct 49.5 (42.0-52.0) % MCV 84.6 (80.0-100.0) fL MCH 28.5 (25.0-34.0) pg MCHC 33.7 (32.0-36.0) g/dL RDW Std Deviation 42.6 (36.4-46.3) fL RDW Coeff of Prabhjot 13.8 (11.5-14.5) % Plt Count 152 (130-400) K/uL MPV 12.4 (9.4-12.4) fL Immature Gran % (Auto) 0.7 % Neut % (Auto) 84.0 % Lymph % (Auto) 7.7 % [place] % (Auto) 6.4 % Eos % (Auto) 0.8 % Baso % (Auto) 0.4 % Neut # (Auto) 8.63 H (1.40-6.50) K/uL Lymph # (Auto) 0.79 L (1.20-3.40) K/uL [place] # (Auto) 0.66 H (0.11-0.59) K/uL Eos # (Auto) 0.08 (0.00-0.50) K/uL Baso # (Auto) 0.04 (0.00-0.20) K/uL Immature Gran # (Auto) 0.07 (0.01-0.20) K/uL PT 12.1 H (9.0-12.0) Seconds INR 1.1 (0.9-1.1) APTT 30.2 (21.0-31.0) Seconds PTT Ratio 1.1 Sodium 138 (136-145) mmol/L Potassium 3.8 (3.5-5.1) mmol/L Chloride 102 (98-107) mmol/L Carbon Dioxide 26 (21-32) mmol/L Anion Gap 10 (3-11) BUN 18 (6-23) mg/dl Creatinine 1.07 (0.6-1.4) mg/dl Est Cr Clr Drug Dosing 74.1 ml/min Est GFR ( Amer) 79.4 ml/min Est GFR (Non-Af Amer) 68.5 ml/min BUN/Creatinine Ratio 16.8 (10-20) Glucose 132 H (70-99(Fasting)) mg/dl Calcium 10.2 (8.6-10.3) mg/dl Magnesium 2.0 (1.7-2.4) mg/dl Total Bilirubin 1.9 H (0.2-1.0) mg/dl AST 23 (13-39) U/L ALT 28 (7-52) U/L Alkaline Phosphatase 65 (34-104) U/L Troponin I High Sens 41.0 H (0-20) pg/ml Total Protein 6.6 (6.0-8.3) gm/dl Albumin 5.0 (3.4-5.0) gm/dl Globulin 1.6 L (2.5-4.0) gm/dl Albumin/Globulin Ratio 3.1 H (0.9-2) TSH (0.300-4.500) uIu/ml Urine Color Urine Appearance (Clear) Urine pH (4.5-7.5) Ur Specific [place] (1.000-1.030) Urine Protein (Negative) Urine Glucose (UA) (Negative) Urine Ketones (Negative) Urine Blood (Negative) Urine Nitrite (Negative) Urine Bilirubin (Negative) Urine Urobilinogen (Negative) Ur Leukocyte Esterase (Negative) Urine WBC (Auto) (0-5) /hpf Urine RBC (Auto) (0-4) /hpf U Hyaline Cast (Auto) (0-5) /lpf U Epithel Cells (Auto) (0-5) /lpf Urine Bacteria (Auto) (Negative) 04/14/23 04/14/23 04/14/23 Range/Units 19:44 22:16 22:31 WBC (4.8-10.8) K/ul RBC (4.70-6.10) M/uL Hgb (14.0-18.0) g/dl Hct (42.0-52.0) % MCV (80.0-100.0) fL MCH (25.0-34.0) pg MCHC (32.0-36.0) g/dL RDW Std Deviation (36.4-46.3) fL RDW Coeff of Prabhjot (11.5-14.5) % Plt Count (130-400) K/uL MPV (9.4-12.4) fL Immature Gran % (Auto) % Neut % (Auto) % Lymph % (Auto) % [place] % (Auto) % Eos % (Auto) % Baso % (Auto) % Neut # (Auto) (1.40-6.50) K/uL Lymph # (Auto) (1.20-3.40) K/uL [place] # (Auto) (0.11-0.59) K/uL Eos # (Auto) (0.00-0.50) K/uL Baso # (Auto) (0.00-0.20) K/uL Immature Gran # (Auto) (0.01-0.20) K/uL PT (9.0-12.0) Seconds INR (0.9-1.1) APTT (21.0-31.0) Seconds PTT Ratio Sodium (136-145) mmol/L Potassium (3.5-5.1) mmol/L Chloride (98-107) mmol/L Carbon Dioxide (21-32) mmol/L Anion Gap (3-11) BUN (6-23) mg/dl Creatinine (0.6-1.4) mg/dl Est Cr Clr Drug Dosing ml/min Est GFR ( Amer) ml/min Est GFR (Non-Af Amer) ml/min BUN/Creatinine Ratio (10-20) Glucose (70-99(Fasting)) mg/dl Calcium (8.6-10.3) mg/dl Magnesium (1.7-2.4) mg/dl Total Bilirubin (0.2-1.0) mg/dl AST (13-39) U/L ALT (7-52) U/L Alkaline Phosphatase (34-104) U/L Troponin I High Sens 37.0 H (0-20) pg/ml Total Protein (6.0-8.3) gm/dl Albumin (3.4-5.0) gm/dl Globulin (2.5-4.0) gm/dl Albumin/Globulin Ratio (0.9-2) TSH 1.108 (0.300-4.500) uIu/ml Urine Color Yellow Urine Appearance Clear (Clear) Urine pH 5.5 (4.5-7.5) Ur Specific [place] 1.006 (1.000-1.030) Urine Protein Negative (Negative) Urine Glucose (UA) Negative (Negative) Urine Ketones Negative (Negative) Urine Blood Negative (Negative) Urine Nitrite Positive A (Negative) Urine Bilirubin Negative (Negative) Urine Urobilinogen Negative (Negative) Ur Leukocyte Esterase 1+ H (Negative) Urine WBC (Auto) 10-30 H (0-5) /hpf Urine RBC (Auto) 0-4 (0-4) /hpf U Hyaline Cast (Auto) 0 (0-5) /lpf U Epithel Cells (Auto) 5-10 H (0-5) /lpf Urine Bacteria (Auto) 3+ H (Negative) Administered Medications Atorvastatin Calcium (Atorvastatin 10 Mg Tab) 10 mg PO DAILY [facility] Stop: 05/15/23 08:59 Last Admin: 04/15/23 07:33 Dose: 10 mg Documented By: JAMI Diltiazem HCl (Diltiazem Hcl 240 Mg Capcr) 240 mg PO QDL [facility] Stop: 05/15/23 11:29 Last Admin: 04/15/23 11:35 Dose: 240 mg Documented By: JAMI Insulin Aspart (Insulin Aspart Per Unit Charge) 0 units SC Q6 [facility] Stop: 05/15/23 05:59 Last Admin: 04/15/23 12:06 Dose: Not Given Documented By: Admin: 04/15/23 06:25 Dose: Not Given Documented By: JEANA Insulin Glargine (Lantus Per Unit Charge) 9 units SQ BID [facility] Stop: 05/15/23 08:59 Last Admin: 04/15/23 08:12 Dose: 9 units Documented By: JAMI Co-signed By: SHELBY Discontinued Medications Sodium Chloride (Nss 1000ml) 1,000 mls @ 999 mls/hr IV .Q1H1M [facility] Stop: 04/14/23 21:00 Last Infusion: 04/14/23 21:50 Dose: 0 mls/hr Documented By: Admin: 04/14/23 20:14 Dose: 999 mls/hr Documented By: DAVID Ceftriaxone Sodium (Rocephin) 2,000 mg in 70 mls @ 140 mls/hr IV NOW STA Stop: 04/14/23 23:01 Last Infusion: 04/14/23 23:47 Dose: 0 mls/hr Documented By: Admin: 04/14/23 22:56 Dose: 140 mls/hr Documented By: DAVID Imaging Data Radiologist's Impression: Cervical Spine CT 04/14/23 19:59 Exam(s): CT C SPINE EXAM: CT Cervical Spine Without Intravenous Contrast CLINICAL HISTORY: syncope, head injury. TECHNIQUE: Axial computed tomography images of the cervical spine without intravenous contrast. CTDI is 25.58 mGy and DLP is 540.66 mGy-cm. Automated exposure control was utilized for the study. A dose lowering technique was utilized adhering to the principles of ALARA. COMPARISON: No relevant prior studies available. FINDINGS: Vertebrae: The vertebral bodies are intact without acute osseous traumatic injury. No anterolisthesis or retrolisthesis is identified. The facet joints are well aligned without subluxation or dislocation. The pedicles, transverse processes and spinous processes are intact. Discs/spinal canal/neural foramina: Chronic marginal hypertrophic osteophyte changes noted at several levels. No acute findings. No osseous spinal canal stenosis. Soft tissues: Unremarkable. Lung apices: The included lung apices demonstrate no evidence for significant acute traumatic injury. IMPRESSION: No acute osseous traumatic injury or significant abnormal alignment involving the cervical spine. Electronically signed by: Moises Birmingham MD 04/14/23 21:18 PM Chest X-Ray 04/14/23 19:59 SINGLE VIEW CHEST CLINICAL HISTORY: Syncope. FINDINGS: An AP, portable, upright chest radiograph is compared to study dated 02/15/2020. The examination is degraded by portable technique and apical lordotic positioning. The heart is enlarged noting atherosclerotic calcification of the thoracic aorta. The pulmonary vasculature is noncongested. Chronic interstitial thickening is similar to previous. The lungs and pleural spaces are clear. No pneumothorax is seen. The skeletal structures are osteopenic. The bony thorax is grossly intact. IMPRESSION: Cardiomegaly with no active disease in the chest. ACT 112: Negative or not required by law. Electronically signed by: Manny Clark M.D. 04/14/2023 9:[address] 04/14/23 19:59 Exam(s): CT HEAD Without Contrast EXAM: CT Head Without Intravenous Contrast CLINICAL HISTORY: syncope, head injury. TECHNIQUE: Axial computed tomography images of the head/brain without intravenous contrast. CTDI is 35.51 mGy and DLP is 624.41 mGy-cm. Automated exposure control was utilized for the study. A dose lowering technique was utilized adhering to the principles of ALARA. COMPARISON: 02/15/2020 FINDINGS: Brain: No intracranial hemorrhage. No significant mass effect. No evidence for cortical infarct. Similar mild parenchymal involutional changes and periventricular deep white matter hypodense changes. Ventricles: Unremarkable. No ventriculomegaly. Bones/joints: Unremarkable. No acute fracture. Soft tissues: No significant overlying acute traumatic soft tissue abnormality. No radiopaque foreign body. Sinuses: Unremarkable as visualized. No acute sinusitis. Mastoid air cells: Unremarkable as visualized. No mastoid effusion. IMPRESSION: No acute intracranial process identified. No significant alteration from the previous examination. Electronically signed by: Moises Birmingham MD 04/14/23 21:16 PM Discharge Plan Visit Data Chief Complaint: Referred by Doctor Stated Complaint: REF BY DR NICHOLS Provider: Johnson Robledo ED Midlevel Provider: Veronica Keller Discharge Problem: Syncope, SVT (supraventricular tachycardia) Patient Disposition: Admitted As Inpatient Discharge Instructions Interventions: ED Discharge Assessment Last Done: 04/15/23 04:31
--- NOTE | 2023-04-14 21:17 | CT Scan Report ---
Exam(s): CT HEAD Without Contrast EXAM: CT Head Without Intravenous Contrast CLINICAL HISTORY: syncope, head injury. TECHNIQUE: Axial computed tomography images of the head/brain without intravenous contrast. CTDI is 35.51 mGy and DLP is 624.41 mGy-cm. Automated exposure control was utilized for the study. A dose lowering technique was utilized adhering to the principles of ALARA. COMPARISON: 02/15/2020 FINDINGS: Brain: No intracranial hemorrhage. No significant mass effect. No evidence for cortical infarct. Similar mild parenchymal involutional changes and periventricular deep white matter hypodense changes. Ventricles: Unremarkable. No ventriculomegaly. Bones/joints: Unremarkable. No acute fracture. Soft tissues: No significant overlying acute traumatic soft tissue abnormality. No radiopaque foreign body. Sinuses: Unremarkable as visualized. No acute sinusitis. Mastoid air cells: Unremarkable as visualized. No mastoid effusion. IMPRESSION: No acute intracranial process identified. No significant alteration from the previous examination. Electronically signed by: Moises Birmingham MD 04/14/23 21:16 PM
--- NOTE | 2023-04-14 21:19 | CT Scan Report ---
Exam(s): CT C SPINE EXAM: CT Cervical Spine Without Intravenous Contrast CLINICAL HISTORY: syncope, head injury. TECHNIQUE: Axial computed tomography images of the cervical spine without intravenous contrast. CTDI is 25.58 mGy and DLP is 540.66 mGy-cm. Automated exposure control was utilized for the study. A dose lowering technique was utilized adhering to the principles of ALARA. COMPARISON: No relevant prior studies available. FINDINGS: Vertebrae: The vertebral bodies are intact without acute osseous traumatic injury. No anterolisthesis or retrolisthesis is identified. The facet joints are well aligned without subluxation or dislocation. The pedicles, transverse processes and spinous processes are intact. Discs/spinal canal/neural foramina: Chronic marginal hypertrophic osteophyte changes noted at several levels. No acute findings. No osseous spinal canal stenosis. Soft tissues: Unremarkable. Lung apices: The included lung apices demonstrate no evidence for significant acute traumatic injury. IMPRESSION: No acute osseous traumatic injury or significant abnormal alignment involving the cervical spine. Electronically signed by: Moises Birmingham MD 04/14/23 21:18 PM
[2023-04-14 21:40] LABS: INR 1.1 (0.9-1.1); Partial Thromboplastin Ratio 1.1; Partial Thromboplastin Time 30.2 Seconds (21.0-31.0); Prothrombin Time 12.1 Seconds (9.0-12.0)
[2023-04-14 21:52] LABS: Basophils # (auto) 0.04 K/uL (0.00-0.20); Basophils % (auto) 0.4 %; Eosinophils # (auto) 0.08 K/uL (0.00-0.50); Eosinophils % (auto) 0.8 %; Hematocrit (blood only) 49.5 % (42.0-52.0); Hemoglobin 16.7 g/dl (14.0-18.0); Immature Granulocytes # (auto) 0.07 K/uL (0.01-0.20); Immature Granulocytes % (auto) 0.7 %; Lymphocytes # (auto) 0.79 K/uL (1.20-3.40); Lymphocytes % (auto) 7.7 %; Mean Corpuscular Hemoglobin 28.5 pg (25.0-34.0); Mean Corpuscular Hgb Conc 33.7 g/dL (32.0-36.0); Mean Corpuscular Volume 84.6 fL (80.0-100.0); Mean Platelet Volume 12.4 fL (9.4-12.4); Monocytes # (auto) 0.66 K/uL (0.11-0.59); Monocytes % (auto) 6.4 %; Neutrophils # (auto) 8.63 K/uL (1.40-6.50); Platelet Count 152 K/uL (130-400); RDW Coefficient of Variation 13.8 % (11.5-14.5); RDW Standard Deviation 42.6 fL (36.4-46.3); Red Blood Count 5.85 M/uL (4.70-6.10); White Blood Count 10.27 K/ul (4.8-10.8)
--- NOTE | 2023-04-14 22:00 | XRay Report ---
SINGLE VIEW CHEST CLINICAL HISTORY: Syncope. FINDINGS: An AP, portable, upright chest radiograph is compared to study dated 02/15/2020. The examinat ion is degraded by portable technique and apical lordotic positioning. The heart is enlarged noting a therosclerotic calcification of the thoracic aorta. The pulmonary vasculature is noncongested. Chroni c interstitial thickening is similar to previous. The lungs and pleural spaces are clear. No pneumoth orax is seen. The skeletal structures are osteopenic. The bony thorax is grossly intact. IMPRESSION: Cardiomegaly with no active disease in the chest. ACT 112: Negative or not required by law. Electronically signed by: Manny Clark M.D. 04/14/2023 9:59 PM
[2023-04-14 22:11] LABS: Anion Gap 10 (3-11); Bilirubin,Total 1.9 mg/dl (0.2-1.0); Calcium 10.2 mg/dl (8.6-10.3); Carbon Dioxide 26 mmol/L (21-32); Chloride 102 mmol/L (98-107); Potassium 3.8 mmol/L (3.5-5.1); Sodium 138 mmol/L (136-145)
[2023-04-14 22:17] LABS: Alanine Aminotransferase 28 U/L (7-52); Albumin Globulin Ratio 3.1 (0.9-2); Alkaline Phosphatase 65 U/L (34-104); Aspartate Aminotransferase 23 U/L (13-39); BUN Creatinine Ratio 16.8 (10-20); Blood Urea Nitrogen 18 mg/dl (6-23); Creatinine Clr Calc Pharmacy 74.1 ml/min; Est GFR (African American) 79.4 ml/min; Est GFR (Non-African American) 68.5 ml/min; Globulin 1.6 gm/dl (2.5-4.0); Glucose 132 mg/dl (70-99(Fasting)); Total Protein 6.6 gm/dl (6.0-8.3)
[2023-04-14 22:25] LABS: Appearance Urine Clear (Clear); Bacteria Urine Automated 3+ (Negative); Bilirubin Urine Negative (Negative); Blood Urine Negative (Negative); Cast Urine Automated 0 /lpf (0-5); Color Urine Yellow; Glucose Urine UA Negative (Negative); Ketones Urine Negative (Negative); Leukocyte Esterase Urine 1+ (Negative); Nitrite Urine Positive (Negative); Protein Urine Negative (Negative); RBC Urine Automated 0-4 /hpf (0-4); Specific Gravity Urine 1.006 (1.000-1.030); Urobilinogen Urine Negative (Negative); pH Urine 5.5 (4.5-7.5)
[2023-04-14] MEDS ORDERED: cefTRIAXone SODIUM 2,000 MG/70 ML BAG IV STA (22:32)
--- NOTE | 2023-04-15 00:26 | History & Physical Report ---
Date of Service April 15, 2023 Assessment & Plan (1) Syncope: Plan: 73yo Male with PMH HTN HLD DM2 hx SVT here for syncope. Syncope -history SVT, noted bradycardia, syncope previously attributed to SVT -CT head neck wnl -mild elevated trop 37 likely from SVT -recent echo 04/13, EF 55% mild-mod aortic regurge -admit to PCU -consulted cardiology for possible pacer HTN -continue diltiazem HLD -continue atorvastatin DM2 -hold home meds -ordered SSI BPH -continue tamsulosin FENa: NPO Code Status: DNR/DNI DVT PPX: SCDs Dispo: PCU/Nora Schmidt D.O. PGY 3, FCM (2) SVT (supraventricular tachycardia): (3) HLD (hyperlipidemia): (4) HTN (hypertension): (5) Diabetes: History of Present Illness Chief Complaint: Syncope Primary Care Provider: Aidan Chisholm MD 73yo Male with PMH HTN HLD DM2 hx SVT here for syncope. Patient states he was walking in the store with his grandson, without warning he passed out ended up on the floor noted he hurt his back and his hearing aids flew out. EMS was contacted, patient brought to ED, noted some bradycardia. Of note patient follows with cardiology Dr. Hanson for syncopal and near syncopal episodes suspected to be from SVT, initially improved with increased dose diltiazem however no longer helpful. Plan for cardiac ablation 04/13, however it was not performed due to some complication, patient unsure. 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 Patient describes 'hot flash' episodes in the mean time where he did not pass out but felt similar. Denies headache dizziness lightheadedness SOB chest pain abd pain nausea vomiting during these times. POA is Amber. Patient compliant with medication, he denies assistance with medication. Allergies Allergy/AdvReac Type Severity Reaction Status Date / Time No Known Allergies Allergy Verified 04/14/23 20:57 Home Medications Medication Instructions Recorded Confirmed Type atorvastatin 20 mg tablet 10 mg PO DAILY 02/15/20 04/14/23 History tamsulosin 0.4 mg capsule 0.4 mg PO QPM 02/15/20 04/14/23 History alogliptin 25 mg tablet 25 mg PO DAILY 03/23/23 04/14/23 History triamcinolone acetonide 0.5 % 1 applic topical DAILY PRN Itching 03/23/23 04/14/23 History topical cream cinnamon bark 500 mg capsule 1,000 mg PO QDL 04/14/23 04/14/23 History (Cinnamon) diltiazem HCl 240 mg 240 mg PO QDL 04/14/23 04/14/23 History capsule,extended release 24 hr latanoprost 0.005 % eye drops 1 drp ophthalmic (eye) PM 04/14/23 04/14/23 History metformin 850 mg tablet 850 mg PO BID 04/14/23 04/14/23 History timolol maleate 0.5 % eye drops 1 drp ophthalmic (eye) DAILY 04/14/23 04/14/23 History Past Med/Surg History Medical History Diabetes HLD (hyperlipidemia) HTN (hypertension) No pertinent family history Surgical History No pertinent past surgical history Family History Father Coronary heart disease Hypertension Diabetes Social History Smoking Status: Never smoker Hx Alcohol Use: No Hx Substance Use: No Preferred Language: Danish Communication Ability: Effective Facilities Clerk Required: No Beliefs That Will Affect Care: None Current Living Situation: Spouse Feels Safe at Home: Yes Assistive Devices: Hearing Aid - Right Physical Exam Constitutional: well developed, well nourished, cooperative and comfortable Eyes: PERRL, conjunctivae normal, anicteric sclerae ENMT: external ear and nose normal, oropharynx normal Respiratory: normal respiratory effort, lungs clear to auscultation Cardiovascular: Rate/Rhythm: regular rate and regular rhythm Extremities: no edema Gastrointestinal (Abdomen): Inspection/Auscultation: abdomen normal to inspection Percussion/Palpation: abdomen soft; abdomen nontender Skin: no rashes, warm and dry Results & Data Results & Data Vital Signs (Past 12 Hours) Vital Signs Temp Pulse Pulse Resp BP BP Pulse Ox 04/14/23 23:00 58 L 16 96 04/14/23 21:50 64 16 149/69 H 95 04/14/23 21:50 64 18 149/69 H 96 04/14/23 20:12 61 18 127/63 04/14/23 19:25 72 04/14/23 20:10 96 04/14/23 19:11 36.3 C L 74 16 130/71 97 O2 Del Method 04/14/23 23:00 04/14/23 21:50 04/14/23 21:50 Room Air 04/14/23 20:12 Room Air 04/14/23 19:25 04/14/23 20:10 Room Air 04/14/23 19:11 Room Air Supervising Physician Co-Signing Physician Notes Attending addendum: I have physically seen this patient, have supervised the medical residents activities, and agree with the H&P unless as otherwise noted. Assessment and Plan: Syncope/hypertension- The patient will be admitted to telemetry for serial cardiac enzymes, serial EKG's, cardiac rhythm monitoring History of SVT related syncope Episodes of bradycardia noted. Tachybradycardia syndrome Most recent echocardiogram 04/13 with ejection fraction 55%, mild to moderate aortic regurgitation Hold diltiazem until assessed by cardiology in a.m. Timolol maleate eyedrops may be contributing to bradycardia Consult cardiology Diabetes mellitus- Hold alogliptin and metformin Placed on Accu-Cheks with NovoLog SSI Hyperlipidemia- Continue atorvastatin Remaining orders and notations as noted Resident Activity Tracking Resident Involvement: Resident Care Provided Care Provided: Adult Hospital Medicine (1) Syncope Syncope type: unspecified Qualified Code(s): R55 - Syncope and collapse (4) HTN (hypertension) Hypertension type: primary hypertension Qualified Code(s): I10 - Essential (primary) hypertension
[2023-04-15] MEDS ORDERED: CARBOHYDRATES FOR HYPOGLYCEMIA PO PRN (04:06)
[2023-04-15] MEDS ORDERED: DEXTROSE 50% 50 ML SYRINGE IV PRN (04:06)
[2023-04-15] MEDS ORDERED: GLUCOSE 10 TAB/TUBE PO PRN (04:06)
[2023-04-15] MEDS ORDERED: GLUCAGON FOR INJ 1 MG VIAL SQ PRN (04:06)
[2023-04-15] MEDS ORDERED: GLUCOSE 40% GEL 15 GM TUBE PO PRN (04:06)
[2023-04-15] MEDS: INSULIN ASPART PER UNIT CHARGE SC SCH ×4 (06:25→20:41)
[2023-04-15] MEDS: ATORVASTATIN 10 MG TAB PO SCH (07:33)
[2023-04-15 07:57] LABS: Hematocrit (blood only) 45.6 % (42.0-52.0); Hemoglobin 15.7 g/dl (14.0-18.0); Mean Corpuscular Hemoglobin 29.2 pg (25.0-34.0); Mean Corpuscular Hgb Conc 34.4 g/dL (32.0-36.0); Mean Corpuscular Volume 84.9 fL (80.0-100.0); Mean Platelet Volume 11.8 fL (9.4-12.4); Platelet Count 158 K/uL (130-400); RDW Standard Deviation 42.8 fL (36.4-46.3); Red Blood Count 5.37 M/uL (4.70-6.10); White Blood Count 7.08 K/ul (4.8-10.8)
[2023-04-15] MEDS: LANTUS PER UNIT CHARGE SQ SCH ×2 (08:12→20:41)
[2023-04-15 08:33] LABS: BUN Creatinine Ratio 16.5 (10-20); Calcium 9.3 mg/dl (8.6-10.3); Creatinine Clr Calc Pharmacy 88.1 ml/min; Est GFR (African American) 96.6 ml/min; Est GFR (Non-African American) 83.3 ml/min; Potassium 3.9 mmol/L (3.5-5.1)
[2023-04-15] MEDS: dilTIAZem HCL 240 MG CAPCR PO SCH (11:35)
--- NOTE | 2023-04-15 13:30 | Cardiology Consultation ---
Date of Consultation April 15, 2023 Assessment & Plan (1) Syncope and collapse: (2) SVT (supraventricular tachycardia): (3) HTN (hypertension): (4) Dilated aortic root: (5) Aortic regurgitation: Plan ASSESSMENT/PLAN: 1. Syncope: Etiology not completely defined but has reported bradycardia and Mobitz 1 (telemetry strips not available for review from Mobitz 1). Not orthostatic and does not appear to be vasovagal as there is little to no warning and no identified trigger. Discussed with Dr. Cho of electrophysiology. To complete ablation, pacemaker would be warranted based on his findings during EP study. Therefore, reasonable to implant pacemaker. Pacemaker not urgent and not available at this time until 04/18/2023. No indication for temporary pacemaker. Recommend fall precautions. 2. SVT: Underwent EP study. Dr. Cho reports that in order to proceed with ablation, pacemaker would be warranted. He is on diltiazem due to SVT. No SVT this hospitalization thus far. 3. Dilated aortic root: Recommend annual surveillance. Would consider outpatient CT imaging of the chest to evaluate the remainder of the thoracic aorta. Avoid strenuous lifting for which the Valsalva maneuver is required. Ideally, beta-keenan could be utilized but will defer this to his primary highway maintainer as he is already on diltiazem for SVT. Blood pressure control important. 4. Hypertension: Blood pressure well controlled today. No changes made at this time. 5. Aortic regurgitation: Nonsevere. Can monitor over time. May worsen if aortic root further dilates. 6. Disposition: N.p.o. after midnight on Monday in anticipation of pacemaker on 04/18/2023. Dr. Cho will be covering cardiology on 04/18/2023 and is aware. Please call with any further questions or concerns in the meantime. Thank you for allowing me to participate in the care of your patient. Please call for any other questions or concerns. Sincerely, Ventura Diamond M.D. History of Present Illness Reason for Consultation: Syncope Requesting Physician: Dr. Munoz Attending Physician: Cade Butterfield MD History of Present Illness Mr. Siddiqui is a pleasant 73-year-old gentleman with a history significant for type 2 diabetes, hypertension, dyslipidemia, SVT, and syncope. His primary highway maintainer is Dr. Hanson. He has had episodes of syncope and near syncope. More recently, he had an episode of syncope 2 weeks ago and once again yesterday. Yesterday he was walking in a store with his grandson and he apparently tried to communicate to his grandson and then fell immediately to the ground on his back. He reportedly awakened within a few seconds and was helped to a chair and then after a few minutes, was able to leave the store on his own accord. He has had other episodes of near syncope where he felt like he would lose consciousness. These are often preceded by "hot flashes" and he is not sure if he had such symptoms before yesterday syncopal episode. He had an EP study on 04/13/2023. Ablation was not performed. I discussed today via telephone with Dr. Cho. He states that he would likely need a pacemaker prior to ablation. He also reported that there was evidence of Mobitz 1 on the monitor while in the EP study holding area. He has not had an episode of syncope or near syncope while wearing an outpatient monitor. Orthostatic vitals were checked after presentation and he was not orthostatic. He denies chest pain typically but had substernal chest discomfort described as a "light pain" at rest after falling from a syncopal episode. He also noted after his EP study. He denies exertional chest discomfort. He denies shortness of breath, palpitations, edema, or bleeding such as melena, hematochezia, hematuria. His son and [id number] were present at the bedside. They do not feel comfortable taking him home until he has a pacemaker. His has ongoing medical issues as well and he is the primary caregiver. Review of systems: As above. Review of systems otherwise negative/unremarkable. Family history: Father diagnosed with PR. Details not well known. Social history: Quit smoking many years ago. No alcohol since 1991. Lives at home with his . 2 children. His son Patrick and [id number], Rachana, were present at the bedside. Allergies Allergy/AdvReac Type Severity Reaction Status Date / Time No Known Allergies Allergy Verified 04/14/23 20:57 Home Medications Medication Instructions Recorded Confirmed Type atorvastatin 20 mg tablet 10 mg PO DAILY 02/15/20 04/14/23 History tamsulosin 0.4 mg capsule 0.4 mg PO QPM 02/15/20 04/14/23 History alogliptin 25 mg tablet 25 mg PO DAILY 03/23/23 04/14/23 History triamcinolone acetonide 0.5 % 1 applic topical DAILY PRN Itching 03/23/23 04/14/23 History topical cream cinnamon bark 500 mg capsule 1,000 mg PO QDL 04/14/23 04/14/23 History (Cinnamon) diltiazem HCl 240 mg 240 mg PO QDL 04/14/23 04/14/23 History capsule,extended release 24 hr latanoprost 0.005 % eye drops 1 drp ophthalmic (eye) PM 04/14/23 04/14/23 History metformin 850 mg tablet 850 mg PO BID 04/14/23 04/14/23 History timolol maleate 0.5 % eye drops 1 drp ophthalmic (eye) DAILY 04/14/23 04/14/23 History Patient History Medical History (Updated 04/15/23 @ 19:27 by Sandeep Diamond MD) Aortic regurgitation Diabetes Dilated aortic root HLD (hyperlipidemia) HTN (hypertension) SVT (supraventricular tachycardia) Type 2 diabetes mellitus Surgical History No pertinent past surgical history Family History Father Coronary heart disease Hypertension Diabetes Social History Smoking Status: Never smoker Hx Alcohol Use: No Hx Substance Use: No Preferred Language: Armenian Communication Ability: Effective Sandwich Board Carrier Required: No Beliefs That Will Affect Care: None Current Living Situation: Spouse Feels Safe at Home: Yes Assistive Devices: Hearing Aid - Right Physical Exam Physical Exam: Gen.: No acute distress. Alert. HEENT: Anicteric sclera. Neck: No JVD. No bruits. Normal carotid upstrokes bilaterally. Cardiac: No ventricular heave. Regular. Normal S1-S2. No murmurs, rubs, or gallops. Pulmonary: Clear to auscultation bilaterally without wheezes, rales, or rhonchi. Abdomen: Soft, nontender, nondistended, with normoactive bowel sounds. No bruits noted. Extremities: 2+ radial pulses bilaterally. 2+ posterior tibialis pulses bilaterally. Trace bilateral lower extremity edema. No cyanosis. Results & Data Vital Signs (Past 12 Hours) Vital Signs Temp Pulse Pulse Resp BP BP Pulse Ox 04/15/23 11:44 36.6 C 61 20 128/72 96 04/15/23 10:49 04/15/23 10:47 70 04/15/23 08:02 36.7 C 69 18 122/69 97 04/15/23 04:08 37.1 C 66 16 125/90 98 04/15/23 02:00 63 17 133/59 L 94 O2 Del Method 04/15/23 11:44 Room Air 04/15/23 10:49 Room Air 04/15/23 10:47 04/15/23 08:02 Room Air 04/15/23 04:08 Room Air 04/15/23 02:00 Room Air Laboratory Results Laboratory Results - last 24 hr 04/14/23 04/14/23 04/14/23 19:44 19:44 19:44 WBC 10.27 RBC 5.85 Hgb 16.7 Hct 49.5 MCV 84.6 MCH 28.5 MCHC 33.7 RDW Std Deviation 42.6 RDW Coeff of Prabhjot 13.8 Plt Count 152 MPV 12.4 Immature Gran % (Auto) 0.7 Neut % (Auto) 84.0 Lymph % (Auto) 7.7 Bowman % (Auto) 6.4 Eos % (Auto) 0.8 Baso % (Auto) 0.4 Neut # (Auto) 8.63 H Lymph # (Auto) 0.79 L Bowman # (Auto) 0.66 H Eos # (Auto) 0.08 Baso # (Auto) 0.04 Immature Gran # (Auto) 0.07 PT 12.1 H INR 1.1 APTT 30.2 PTT Ratio 1.1 Sodium 138 Potassium 3.8 Chloride 102 Carbon Dioxide 26 Anion Gap 10 BUN 18 Creatinine 1.07 Est Cr Clr Drug Dosing 74.1 Est GFR ( Amer) 79.4 Est GFR (Non-Af Amer) 68.5 BUN/Creatinine Ratio 16.8 Glucose 132 H POC Glucose Calcium 10.2 Magnesium 2.0 Total Bilirubin 1.9 H AST 23 ALT 28 Alkaline Phosphatase 65 Troponin I High Sens 41.0 H Total Protein 6.6 Albumin 5.0 Globulin 1.6 L Albumin/Globulin Ratio 3.1 H TSH Urine Color Urine Appearance Urine pH Ur Specific [place] Urine Protein Urine Glucose (UA) Urine Ketones Urine Blood Urine Nitrite Urine Bilirubin Urine Urobilinogen Ur Leukocyte Esterase Urine WBC (Auto) Urine RBC (Auto) U Hyaline Cast (Auto) U Epithel Cells (Auto) Urine Bacteria (Auto) 04/14/23 04/14/23 04/14/23 19:44 22:16 22:31 WBC RBC Hgb Hct MCV MCH MCHC RDW Std Deviation RDW Coeff of Prabhjot Plt Count MPV Immature Gran % (Auto) Neut % (Auto) Lymph % (Auto) Bowman % (Auto) Eos % (Auto) Baso % (Auto) Neut # (Auto) Lymph # (Auto) Bowman # (Auto) Eos # (Auto) Baso # (Auto) Immature Gran # (Auto) PT INR APTT PTT Ratio Sodium Potassium Chloride Carbon Dioxide Anion Gap BUN Creatinine Est Cr Clr Drug Dosing Est GFR ( Amer) Est GFR (Non-Af Amer) BUN/Creatinine Ratio Glucose POC Glucose Calcium Magnesium Total Bilirubin AST ALT Alkaline Phosphatase Troponin I High Sens 37.0 H Total Protein Albumin Globulin Albumin/Globulin Ratio TSH 1.108 Urine Color Yellow Urine Appearance Clear Urine pH 5.5 Ur Specific [place] 1.006 Urine Protein Negative Urine Glucose (UA) Negative Urine Ketones Negative Urine Blood Negative Urine Nitrite Positive A Urine Bilirubin Negative Urine Urobilinogen Negative Ur Leukocyte Esterase 1+ H Urine WBC (Auto) 10-30 H Urine RBC (Auto) 0-4 U Hyaline Cast (Auto) 0 U Epithel Cells (Auto) 5-10 H Urine Bacteria (Auto) 3+ H 04/15/23 04/15/23 04/15/23 06:25 07:39 07:39 WBC 7.08 RBC 5.37 Hgb 15.7 Hct 45.6 MCV 84.9 MCH 29.2 MCHC 34.4 RDW Std Deviation 42.8 RDW Coeff of Prabhjot 14.0 Plt Count 158 MPV 11.8 Immature Gran % (Auto) Neut % (Auto) Lymph % (Auto) Bowman % (Auto) Eos % (Auto) Baso % (Auto) Neut # (Auto) Lymph # (Auto) Bowman # (Auto) Eos # (Auto) Baso # (Auto) Immature Gran # (Auto) PT INR APTT PTT Ratio Sodium 141 Potassium 3.9 Chloride 108 H Carbon Dioxide 28 Anion Gap 5 BUN 15 Creatinine 0.91 Est Cr Clr Drug Dosing 88.1 Est GFR ( Amer) 96.6 Est GFR (Non-Af Amer) 83.3 BUN/Creatinine Ratio 16.5 Glucose 141 H POC Glucose 149 H Calcium 9.3 Magnesium 2.0 Total Bilirubin AST ALT Alkaline Phosphatase Troponin I High Sens Total Protein Albumin Globulin Albumin/Globulin Ratio TSH Urine Color Urine Appearance Urine pH Ur Specific [place] Urine Protein Urine Glucose (UA) Urine Ketones Urine Blood Urine Nitrite Urine Bilirubin Urine Urobilinogen Ur Leukocyte Esterase Urine WBC (Auto) Urine RBC (Auto) U Hyaline Cast (Auto) U Epithel Cells (Auto) Urine Bacteria (Auto) 04/15/23 04/15/23 11:24 16:16 WBC RBC Hgb Hct MCV MCH MCHC RDW Std Deviation RDW Coeff of Prabhjot Plt Count MPV Immature Gran % (Auto) Neut % (Auto) Lymph % (Auto) Bowman % (Auto) Eos % (Auto) Baso % (Auto) Neut # (Auto) Lymph # (Auto) Bowman # (Auto) Eos # (Auto) Baso # (Auto) Immature Gran # (Auto) PT INR APTT PTT Ratio Sodium Potassium Chloride Carbon Dioxide Anion Gap BUN Creatinine Est Cr Clr Drug Dosing Est GFR ( Amer) Est GFR (Non-Af Amer) BUN/Creatinine Ratio Glucose POC Glucose 116 H 142 H Calcium Magnesium Total Bilirubin AST ALT Alkaline Phosphatase Troponin I High Sens Total Protein Albumin Globulin Albumin/Globulin Ratio TSH Urine Color Urine Appearance Urine pH Ur Specific [place] Urine Protein Urine Glucose (UA) Urine Ketones Urine Blood Urine Nitrite Urine Bilirubin Urine Urobilinogen Ur Leukocyte Esterase Urine WBC (Auto) Urine RBC (Auto) U Hyaline Cast (Auto) U Epithel Cells (Auto) Urine Bacteria (Auto) Diagnostic Findings Labs reviewed and notable for stable renal function, normal potassium, normal blood counts, slightly elevated high-sensitivity troponin with highest level on presentation and then trending downward. Telemetry personally reviewed: Sinus rhythm. No arrhythmia. No significant pause. ECG personally reviewed 04/14/2023: Sinus rhythm with first-degree AV block 66 bpm. PAC. EP study report reviewed. History and physical report reviewed. CT head 04/14/2023: No acute intracranial process per radiology. Chest x-ray 04/14/2023: No active disease in the chest per radiology. Chronic interstitial thickening similar to previous. Carotid duplex 02/02/2021: No significant carotid artery stenosis. Echo 04/13/2023: EF 50 to 55%. Normal wall motion. Mild to moderate AI. Aortic root 4.5 centimeters. Medications Administered Current Inpatient Medications Atorvastatin Calcium (Atorvastatin 10 Mg Tab) 10 mg PO DAILY BULL Stop: 05/15/23 08:59 Last Admin: 04/15/23 07:33 Dose: 10 mg Cephalexin HCl (Cephalexin 500 Mg Cap) 500 mg PO BID BULL; Protocol Stop: 04/20/23 20:59 Dextrose (Dextrose 50% 50 Ml Syringe) 25 - 50 ml IV UD PRN; Protocol PRN Reason: Hypoglycemia Protocol Stop: 05/15/23 04:05 Diltiazem HCl (Diltiazem Hcl 240 Mg Capcr) 240 mg PO QDL BULL Stop: 05/15/23 11:29 Last Admin: 04/15/23 11:35 Dose: 240 mg Glucagon (Glucagon For Inj 1 Mg Vial) 1 mg SQ UD PRN; Protocol PRN Reason: Hypoglycemia Protocol Stop: 05/15/23 04:05 Glucose (Glucose 10 Tab/Tube) 4 - 8 tab PO UD PRN; Protocol PRN Reason: Hypoglycemia Treatment Stop: 05/15/23 04:05 Glucose (Glucose 40% Gel 15 Gm Tube) 15 - 30 gm PO UD PRN; Protocol PRN Reason: Hypoglycemia Protocol Stop: 05/15/23 04:05 Insulin Aspart (Insulin Aspart Per Unit Charge) 0 units SC ACHS BULL Stop: 05/15/23 16:29 Last Admin: 04/15/23 17:18 Dose: 3 units Insulin Glargine (Lantus Per Unit Charge) 9 units SQ BID BULL Stop: 05/15/23 08:59 Last Admin: 04/15/23 08:12 Dose: 9 units Latanoprost (Latanoprost 0.005% Op Soln 2.5 Ml Btl) 1 drops OP PM BULL Stop: 05/15/23 20:59 Miscellaneous (Carbohydrates For Hypoglycemia ) 15 - 30 gm PO UD PRN PRN Reason: Hypoglycemia Protocol Stop: 05/15/23 04:05 Tamsulosin HCl (Tamsulosin Hcl 0.4 Mg Cap) 0.4 mg PO QPM BULL Stop: 10/02/23 20:59 PG Care Time/CCT Total # of Minutes Spent Total Time Spent with Patient: Total time spent is greater than 50% in coordination of care (as documented) at patient's floor/unit and/or counseling patient: Coding Level of Care Code 34086 INT INP/OBS CARE 3/75MIN Diagnoses Syncope and collapse R55 SVT (supraventricular tachycardia) I47.1 HTN (hypertension) I10 Hypertension type: primary hypertension Dilated aortic root I77.810 Aortic regurgitation I35.1 (3) HTN (hypertension) Hypertension type: primary hypertension Qualified Code(s): I10 - Essential (primary) hypertension
--- NOTE | 2023-04-15 19:15 | Billing Data ---
Date of Service April 15, 2023 Coding Level of Care Code 54198 INT INP/OBS CARE
[2023-04-15] MEDS: cephALEXin 500 MG CAP PO SCH (20:32)
[2023-04-15] MEDS: TAMSULOSIN HCL 0.4 MG CAP PO SCH (20:34)
[2023-04-15] MEDS: LATANOPROST 0.005% OP SOLN 2.5 ML BTL OP SCH (22:21)
[2023-04-16] MEDS: cephALEXin 500 MG CAP PO SCH ×2 (07:17→20:26)
[2023-04-16] MEDS: ATORVASTATIN 10 MG TAB PO SCH (07:18)
[2023-04-16] MEDS: LANTUS PER UNIT CHARGE SQ SCH ×2 (08:09→21:38)
[2023-04-16] MEDS: INSULIN ASPART PER UNIT CHARGE SC SCH ×4 (08:09→21:38)
--- NOTE | 2023-04-16 10:47 | Hospitalist Progress Note ---
Date of Service April 16, 2023 Assessment & Plan (1) Syncope: Plan: 73yo Male with PMH HTN HLD DM2 hx SVT here for syncope. Syncope -history SVT, noted bradycardia, syncope previously attributed to SVT -CT head neck wnl -mild elevated trop 37 likely from SVT -recent echo 04/13, EF 55% mild-mod aortic regurge -admit to PCU -consulted cardiology for possible pacemaker on 04/18 before ablation is attempted HTN -continue diltiazem HLD -continue atorvastatin DM2 -hold home meds -ordered SSI BPH -continue tamsulosin FENa: NPO on Monday Code Status: DNR/DNI DVT PPX: SCDs Dispo: PCU/tele (2) SVT (supraventricular tachycardia): (3) HLD (hyperlipidemia): (4) HTN (hypertension): (5) Diabetes: Admission and Anticipated Discharge Date Admission Date: April 15, 2023 Subjective patient seen and examined, no new complaints Review of Systems Review of Systems: All systems reviewed are negative, apart from the ones contained in the history. Physical Exam Physical Exam: The patient is awake, alert and oriented 3, well developed and well nourished, normocephalic and atraumatic, lying in bed and in no acute distress. HEENT--PERRL, EOMI, mucous membranes and oropharynx mildly dry Neck--supple. No JVD. No bruits. Thyroid normal, trachea midline, no adenopathy. Heart--normal S1 and S2. No murmurs, rubs or gallops. Lungs--clear bilaterally, no respiratory distress, no accessory muscle use. Abdomen--normal bowel sounds and soft. Mild epigastric and left sided abdominal pain Extremities--no cyanosis or clubbing. No edema. Dermatologic--normal skin turgor, normal color, no abnormal lymph nodes, no rash. Neurologic--cranial nerves II through XII grossly intact. Rheumatologic--normal range of motion. Psychiatric--normal affect. Results & Data Results & Data Vital Signs (Past 12 Hours) Vital Signs Temp Pulse Resp BP Pulse Ox O2 Del Method 04/16/23 08:06 97.9 F 81 20 127/74 97 Room Air 04/16/23 03:28 97.8 F 74 18 111/68 95 Room Air 04/15/23 23:14 97.7 F 75 18 139/68 94 Room Air PG Care Time/CCT Total # of Minutes Spent Total Time Spent with Patient: Total time spent is greater than 50% in coordination of care (as documented) at patient's floor/unit and/or counseling patient: Coding Level of Care Code 94609 SUB INP/OBS CARE 2/35MIN Diagnoses Syncope R55 SVT (supraventricular tachycardia) I47.1 HLD (hyperlipidemia) E78.5 HTN (hypertension) I10 Hypertension type: primary hypertension Diabetes E11.9 Time Spent (min) 35 (4) HTN (hypertension) Hypertension type: primary hypertension Qualified Code(s): I10 - Essential (primary) hypertension
[2023-04-16] MEDS: dilTIAZem HCL 240 MG CAPCR PO SCH (11:51)
[2023-04-16] MEDS: TAMSULOSIN HCL 0.4 MG CAP PO SCH (20:27)
[2023-04-16] MEDS: LATANOPROST 0.005% OP SOLN 2.5 ML BTL OP SCH (20:27)
[2023-04-17] MEDS: cephALEXin 500 MG CAP PO SCH ×2 (07:09→21:44)
[2023-04-17] MEDS: TIMOLOL MALEATE 0.5% OP SOLN 5 ML BTL OP SCH (07:10)
[2023-04-17] MEDS: ATORVASTATIN 10 MG TAB PO SCH (07:10)
[2023-04-17] MEDS: INSULIN ASPART PER UNIT CHARGE SC SCH ×4 (08:47→21:46)
[2023-04-17] MEDS: LANTUS PER UNIT CHARGE SQ SCH (08:47)
[2023-04-17] MEDS: dilTIAZem HCL 240 MG CAPCR PO SCH (12:16)
[2023-04-17] MEDS: SODIUM CHLORIDE 0.9% 1,000 ML IV SCH ×2 (12:17→12:59)
--- NOTE | 2023-04-17 15:17 | Hospitalist Progress Note ---
Date of Service April 17, 2023 Assessment & Plan (1) Syncope: Plan: Apparently due to bradycardia. He also has SVT. Permanent pacemaker insertion tomorrow, April 18. Cardiology consultation and recommendations appreciated. Possible ablation reattempt after pacemaker insertion. (2) SVT (supraventricular tachycardia): Plan: Telemetry. Continue diltiazem. (3) HLD (hyperlipidemia): Plan: Stable. Continue statin therapy (4) HTN (hypertension): Plan: Stable. Continue diltiazem (5) Diabetes: Plan: ADA diet. Sliding scale coverage. Plan Anticipate eventual discharge back to home Admission and Anticipated Discharge Date Admission Date: April 15, 2023 Subjective Alert and oriented. Family is at the bedside. No new problems. He had a short run of SVT this morning that was asymptomatic. Cardiology consultation appreciated. Pacemaker insertion tomorrowApril 18. Ablation may be attempted again after pacemaker insertion. Cardiac echo reveals ejection fraction of 50% with moderate AI. Free T3 and free T4 levels are normal. IV fluids ordered to make sure intravenous access is available in case it is needed emergently. Glucose levels acceptable Review of Systems Review of Systems: General-alert and oriented x3, no fevers, no chills HEENT-head atraumatic and normocephalic, pupils equal and reactive to light, extraocular muscles intact Neck-no lymphadenopathy or thyromegaly, trachea midline Chest-clear to auscultation percussion. No rales wheezing or rhonchi Cardiac-regular rate and rhythm, normal S1 and S2 Abdomen-normal bowel sounds, nontender, no hepatosplenomegaly Extremities-no cyanosis, clubbing, or edema Neuro-cranial nerves II through XII intact, motor and sensory function within normal limits, strength symmetrical, no focal deficits Psych-normal affect, normal mood Physical Exam Physical Exam: General-alert and oriented x3, no fevers, no chills HEENT-head atraumatic and normocephalic, pupils equal and reactive to light, extraocular muscles intact Neck-no lymphadenopathy or thyromegaly, trachea midline Chest-clear to auscultation percussion. No rales, wheezing or rhonchi Cardiac-regular rate and rhythm, normal S1 and S2 Abdomen-normal bowel sounds, nontender, no hepatosplenomegaly Extremities-no cyanosis, clubbing, or edema Neuro-cranial nerves II through XII intact, motor and sensory function within normal limits, strength symmetrical , no focal deficits Psych-normal affect, normal mood Results & Data Results & Data Vital Signs (Past 12 Hours) Vital Signs Temp Pulse Pulse Resp BP Pulse Ox O2 Del Method 04/17/23 11:30 36.8 C 73 18 116/70 97 Room Air 04/17/23 09:04 36.4 C L 81 17 126/70 97 Room Air 04/17/23 06:57 64 04/17/23 03:43 36.6 C 82 18 118/69 94 Room Air Laboratory Results 04/15/23 07:39 04/15/23 07:39 PG Care Time/CCT Total # of Minutes Spent Total Time Spent with Patient: Total time spent is greater than 50% in coordination of care (as documented) at patient's floor/unit and/or counseling patient: Coding Level of Care Code 46847 SUB INP/OBS CARE 3/50MIN Diagnoses Syncope R55 SVT (supraventricular tachycardia) I47.1 HLD (hyperlipidemia) E78.5 HTN (hypertension) I10 Hypertension type: primary hypertension Diabetes E11.9 (4) HTN (hypertension) Hypertension type: primary hypertension Qualified Code(s): I10 - Essential (primary) hypertension
--- NOTE | 2023-04-17 20:00 | Electrocardiogram Report ---
Test Reason : Blood Pressure : / mmHG Vent. Rate : 066 BPM Atrial Rate : 066 BPM P-R Int : 212 ms QRS Dur : 088 ms QT Int : 438 ms P-R-T Axes : 040 015 047 degrees QTc Int : 459 ms Sinus rhythm with 1st degree A-V block with Premature atrial complexes Otherwise normal ECG When compared with ECG of 13-APR-2023 13:04, Premature atrial complexes are now Present Confirmed by Sandeep Diamond ([id number]) on 04/17/2023 8:00:07 PM Referred By: REFERRED SELF Confirmed By:Sandeep Diamond
[2023-04-17] MEDS: TAMSULOSIN HCL 0.4 MG CAP PO SCH (21:44)
[2023-04-17] MEDS: LATANOPROST 0.005% OP SOLN 2.5 ML BTL OP SCH (21:46)
[2023-04-18] MEDS: SODIUM CHLORIDE 0.9% 1,000 ML IV SCH ×2 (01:06→12:54)
[2023-04-18 07:47] LABS: Basophils # (auto) 0.03 K/uL (0.00-0.20); Basophils % (auto) 0.4 %; Eosinophils # (auto) 0.09 K/uL (0.00-0.50); Eosinophils % (auto) 1.3 %; Hematocrit (blood only) 43.6 % (42.0-52.0); Immature Granulocytes # (auto) 0.04 K/uL (0.01-0.20); Immature Granulocytes % (auto) 0.6 %; Lymphocytes # (auto) 0.85 K/uL (1.20-3.40); Lymphocytes % (auto) 11.9 %; Mean Corpuscular Hemoglobin 28.6 pg (25.0-34.0); Mean Corpuscular Hgb Conc 34.4 g/dL (32.0-36.0); Mean Corpuscular Volume 83.2 fL (80.0-100.0); Mean Platelet Volume 11.7 fL (9.4-12.4); Monocytes # (auto) 0.68 K/uL (0.11-0.59); Monocytes % (auto) 9.5 %; Neutrophils # (auto) 5.46 K/uL (1.40-6.50); Neutrophils % (auto) 76.3 %; Platelet Count 158 K/uL (130-400); RDW Coefficient of Variation 13.9 % (11.5-14.5); Red Blood Count 5.24 M/uL (4.70-6.10); White Blood Count 7.15 K/ul (4.8-10.8)
[2023-04-18] MEDS: INSULIN ASPART PER UNIT CHARGE SC SCH ×3 (07:49→16:46)
[2023-04-18 08:04] LABS: BUN Creatinine Ratio 15.2 (10-20); Calcium 9.2 mg/dl (8.6-10.3); Creatinine Clr Calc Pharmacy 87.7 ml/min; Est GFR (African American) 95.3 ml/min; Est GFR (Non-African American) 82.2 ml/min; Potassium 3.9 mmol/L (3.5-5.1)
[2023-04-18] MEDS: cephALEXin 500 MG CAP PO SCH (08:29)
[2023-04-18] MEDS: TIMOLOL MALEATE 0.5% OP SOLN 5 ML BTL OP SCH (08:29)
[2023-04-18] MEDS: ATORVASTATIN 10 MG TAB PO SCH (08:29)
[2023-04-18] MEDS ORDERED: WATER, STERILE FOR INJ 10 ML VIAL ONE (10:01)
[2023-04-18] MEDS ORDERED: VANCOMYCIN HCL 1000MG/20ML VIAL ONE (10:01)
[2023-04-18] MEDS ORDERED: LIDOCAINE 1% LOCAL 20 ML VIAL ONE (10:01)
[2023-04-18] MEDS ORDERED: BUPIVACAINE 0.25% PF 30 ML VIAL ONE (10:02)
[2023-04-18] MEDS ORDERED: ceFAZolin 330 MG/ML 1 GM VIAL ONE (10:24)
--- NOTE | 2023-04-18 10:26 | Cardiology Progress Note ---
Date of Service April 18, 2023 Assessment & Plan (1) Syncope and collapse: (2) SVT (supraventricular tachycardia): (3) HTN (hypertension): (4) Dilated aortic root: (5) Aortic regurgitation: Plan ASSESSMENT/PLAN: 1. Syncope: Unclear etiology. Presumably bradycardic. 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 Will plan pacemaker implantation today. I discussed the risks and benefits with the patient. 2. SVT: Underwent EP study. He had very brief episodes of inducible SVT. No testing could be performed due to the brief nature of the episodes, but likely AVNRT. One episode while here in the hospital. He remembers the episode with mild symptoms. Again quite brief. 3. Dilated aortic root: Recommend annual surveillance. Would consider outpatient CT imaging of the chest to evaluate the remainder of the thoracic aorta. Avoid strenuous lifting for which the Valsalva maneuver is required. Ideally, beta-keenan could be utilized but will defer this to his primary cab starter as he is already on diltiazem for SVT. Blood pressure control important. 4. Hypertension: Blood pressure well controlled today. No changes made at this time. 5. Aortic regurgitation: Nonsevere. Can monitor over time. May worsen if aortic root further dilates. Admission and Anticipated Discharge Date Admission Date: April 15, 2023 Subjective This morning patient was feeling well. He did experience an episode of SVT over the weekend. He reports standing at that time. He reported his typical symptoms but no severe dizziness, lightheadedness or presyncope. The episode itself was quite brief. Currently feeling well Review of Systems Review of Systems: Per HPI Physical Exam Physical Exam: The patient is alert and oriented. Mood and affect appeared normal. He answered all questions appropriately. HEENT: Pupils are equal and reactive to light and accommodation. Extraocular movements are intact. The sclerae are anicteric. Neuro: Cranial nerves intact Lungs: Clear to auscultation bilaterally. He has good air movement without use of accessory muscles. No rales wheezes or rhonchi. Cardiac: Heart demonstrates a regular rate and rhythm. Normal S1 and S2. No murmurs on examination. Pulses: The patient has palpable radial pulses bilaterally that are equal in intensity Extremities: There was no evidence of hypoperfusion. There is no cyanosis or clubbing. There is no edema. Skin: I did not appreciate any rashes on examination today. Results & Data Vital Signs (Past 12 Hours) Vital Signs Temp Pulse Pulse Resp BP Pulse Ox O2 Del Method 04/18/23 08:07 36.5 C 64 17 121/76 100 Room Air 04/18/23 03:25 37.0 C 70 18 120/71 97 Room Air 04/17/23 23:00 74 04/17/23 22:46 37.0 C 69 18 129/76 98 Room Air Laboratory Results Abnormal Lab Results 04/17/23 04/18/23 04/18/23 20:34 07:17 07:17 WBC 7.15 RBC 5.24 Hgb 15.0 Hct 43.6 MCV 83.2 MCH 28.6 MCHC 34.4 RDW Std Deviation 42.0 RDW Coeff of Prabhjot 13.9 Plt Count 158 MPV 11.7 Immature Gran % (Auto) 0.6 Neut % (Auto) 76.3 Lymph % (Auto) 11.9 [place] % (Auto) 9.5 Eos % (Auto) 1.3 Baso % (Auto) 0.4 Neut # (Auto) 5.46 Lymph # (Auto) 0.85 L [place] # (Auto) 0.68 H Eos # (Auto) 0.09 Baso # (Auto) 0.03 Immature Gran # (Auto) 0.04 Sodium 140 Potassium 3.9 Chloride 108 H Carbon Dioxide 28 Anion Gap 4 BUN 14 Creatinine 0.92 Est Cr Clr Drug Dosing 87.7 Est GFR ( Amer) 95.3 Est GFR (Non-Af Amer) 82.2 BUN/Creatinine Ratio 15.2 Glucose 162 H POC Glucose 195 H Calcium 9.2 04/18/23 04/18/23 04/18/23 07:31 12:47 16:29 WBC RBC Hgb Hct MCV MCH MCHC RDW Std Deviation RDW Coeff of Prabhjot Plt Count MPV Immature Gran % (Auto) Neut % (Auto) Lymph % (Auto) [place] % (Auto) Eos % (Auto) Baso % (Auto) Neut # (Auto) Lymph # (Auto) [place] # (Auto) Eos # (Auto) Baso # (Auto) Immature Gran # (Auto) Sodium Potassium Chloride Carbon Dioxide Anion Gap BUN Creatinine Est Cr Clr Drug Dosing Est GFR ( Amer) Est GFR (Non-Af Amer) BUN/Creatinine Ratio Glucose POC Glucose 170 H 167 H 348 H* Calcium PG Care Time/CCT Total # of Minutes Spent Total Time Spent with Patient: Total time spent is greater than 50% in coordination of care (as documented) at patient's floor/unit and/or counseling patient: Coding Level of Care Code 44658 SUB INP/OBS CARE 2/35MIN Diagnoses Syncope and collapse R55 SVT (supraventricular tachycardia) I47.1 HTN (hypertension) I10 Hypertension type: primary hypertension Dilated aortic root I77.810 Aortic regurgitation I35.1 (3) HTN (hypertension) Hypertension type: primary hypertension Qualified Code(s): I10 - Essential (primary) hypertension
--- NOTE | 2023-04-18 10:27 | Pre Anesthesia Assessment ---
Date of Service April 18, 2023 Pre Sedation Assessment Vital Signs Temp Pulse Pulse Resp BP Pulse Ox O2 Del Method 04/18/23 08:07 36.5 C 64 17 121/76 100 Room Air 04/18/23 03:25 37.0 C 70 18 120/71 97 Room Air 04/17/23 23:00 74 04/17/23 22:46 37.0 C 69 18 129/76 98 Room Air 04/17/23 19:44 36.5 C 73 18 133/63 97 Room Air 04/17/23 18:25 71 04/17/23 15:23 36.8 C 78 18 121/76 96 Room Air 04/17/23 11:30 36.8 C 73 18 116/70 97 Room Air Cardiovascular + regular rate and + regular rhythm Respiratory + respiratory effort normal Pre-Sedation Airway Assessment Smoking Status: Never smoker Hx Sleep Apnea: No Hx Difficult Intubation: No Short, Thick Neck: No Thyromental Distance: > or= 3.5 Finger Breadths Oral Cavity: + WNL Mallampati Class: III ASA: ASA3 Procedure Planning Contraindications for Sedation: none Current Medications Reviewed: Yes Notes The planned sedation has been discussed with the patient. Informed Consent was obtained. I have identified the patient, determined the appropriateness of sedation and have assessed the patient immediately prior to the procedure. All medicine(s) and interventions are by my order.
[2023-04-18] MEDS ORDERED: fentaNYL citrate PF 100 MCG/2 ML VIAL ONE (10:42)
[2023-04-18] MEDS ORDERED: MIDAZOLAM HCL 5 MG/ML 1 ML VIAL ONE (10:42)
--- NOTE | 2023-04-18 11:55 | Electrophysiology Report ---
Date of Service April 18, 2023 Electrophysiology Procedure Electrophysiology Procedure Report Procedure performed: Implantation of dual-chamber permanent pacemaker with left bundle pacing lead Staff design lead: Rigo Cho MD Indication: Patient is a 73-year-old gentleman with a history of SVT and syncope. Recent electrophysiologic testing also revealed evidence poor AV aubrey conduction. 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 Dual-chamber device was selected as he is currently in sinus rhythm which to maintain AV synchrony. Procedure in detail: The patient was informed of the risks benefits and alternatives to the intended procedure and he wished to proceed. He was taken to the electrophysiology suite in a fasting state. A preoperative antibiotic had been administered. The patient was monitored electrocardiographically throughout today's procedure and conscious sedation was administered per protocol. The left upper pectoral area is prepped and draped in usual sterile fashion. This area was anesthetized using subcutaneous administration of a xylocaine solution. An incision was made at this site and carried down to the prepectoralis fascia using sharp dissection. Electrocautery was also employed for dissection as well as for hemostasis. A device pocket was fashioned tissues above the pectoralis muscle. Subsequent to this maneuver the left axillary vein was accessed using modified Seldinger technique. A sheath was placed over guidewire and used facilitate passage of the guiding catheter for mapping of the interventricular septum. Once appropriate location was identified the pacing lead was advanced into the interventricular septum. Adequate sensing threshold parameters were obtained prior to removal of the guiding catheter. The proximal portion of the lead was then sutured to prepectoralis fascia using nonabsorbable suture. The remaining guidewire was used facilitate passage of a sheath and lead to the right atrium. Adequate sensing threshold parameters were obtained prior to active fixation of lead to the endocardial surface. Proximal portion lead was then sutured to prepectoralis fascia using nonabsorbable suture. The device pocket was irrigated with antibiotic solution. The leads were then attached to the device. The device and leads were then placed in the pocket and pocket was closed in 3 layers of absorbable suture. Steri-Strips and sterile dressing were applied. The device was tested noninvasively prior to conclusion the procedure. The patient tolerated procedure well there no immediate complications. Equipment used: New pulse generator: Scarfer Operator [employer]. Model number:[id number] serial number [id number] Right atrial lead: Scarfer Operator [employer]tronic. Model number: [id number] serial number [id number] Right ventricular lead: Scarfer Operator [employer]tronic. Model number: 330 serial number [id number] Measured data: Right atrial lead: P-waves measured 2.5 mV. Pacing threshold was 2.25 volts at 0.4 millisecond with a pacing impedance of 570 Ohms Right ventricular lead: R-waves measured 20 mV. Pacing threshold 0.75 volts at 0.4 millisecond with a pacing impedance of 608 Ohms Impression: Successful implantation of dual-chamber permanent pacemaker with left bundle pacing lead [facility] Electrophysiology codes Pacing Procedure 1: Pacin Insert/Replace Pacer A & V PG Moderate Sedation Codes Moderate Sedation Codes Procedure 1: Sedation/Anesthesia: 30457 Mod Sedation by the same physician;Init15 Min Child Age 5 & Up Procedure 2: Sedation/Anesthesia: 26546 Mod Sedation by the same physician; Ea [id number] Minutes
[2023-04-18] MEDS ORDERED: oxyCODONE HCL IR 5 MG TAB (IMMEDIATE RELEASE) PO PRN (11:56)
[2023-04-18] MEDS ORDERED: ACETAMINOPHEN 325 MG TAB PO PRN (11:56)
--- NOTE | 2023-04-18 11:56 | Post Anesthesia Assessment ---
Date of Service April 18, 2023 Post Sedation Assessment Vital Signs Temp Pulse Pulse Resp BP Pulse Ox O2 Del Method 04/18/23 11:50 77 16 150/77 H 94 Room Air 04/18/23 08:00 58 L 04/18/23 08:07 36.5 C 64 17 121/76 100 Room Air 04/18/23 03:25 37.0 C 70 18 120/71 97 Room Air 04/17/23 23:00 74 04/17/23 22:46 37.0 C 69 18 129/76 98 Room Air 04/17/23 19:44 36.5 C 73 18 133/63 97 Room Air 04/17/23 18:25 71 04/17/23 15:23 36.8 C 78 18 121/76 96 Room Air Recovery Score Activity: Moves 4 extremities Respiration: Deep Breath/Cough Circulation: +/-20% PreAnes Value Consciousness: Fully Awake Oxygen Saturation: > 92% On Room Air Post Anesthesia Score: 10 Discharge Sedation Level of Care: Fast Track Phase II Post Sedation Plan On clinical assessment, the patient appears to have tolerated the sedation without complications. Patient is recovering as anticipated. Patient will continue to be monitored by nursing and may be discharged when sedation discharge criteria are met per below protocol. Upon Completions of procedure up to 15 minutes continue every 5 minute vital signs and the P.A.R. score; then discharge to a Phase I or Fast Track to Phase II per the following guidelines: * Discharge Patient to appropriate Phase II area if PAR is 8 or greater or return to pre- procedure baseline. The post - procedure orders will be as directed. * If PAR score is less than 8 or not return to pre-procedure baseline then patient will follow Phase I monitoring till PAR is reached for Phase II. The Phase I may be done in procedure room or may call to secure a Phase I area. * If naloxone or flumazenil are used for reversal, hold in Phase I for continued monitoring from when last reversal dose was given for a minimum of 60 minutes or longer pending the nurse and/or physician discretion of patient condition before discharge to Phase II. Please call the Sedation Physician to re-evaluate and complete post-note for discharge to Phase II area. Do NOT discharge from procedure sedation or Phase 1 until post- sedation evaluation note is complete by procedure /sedation MD Sedation Discharge Instructions to be given to the patient at discharge to home.
[2023-04-18] MEDS: dilTIAZem HCL 240 MG CAPCR PO SCH (12:56)
--- NOTE | 2023-04-18 14:35 | Discharge Summary ---
Date of Service April 18, 2023 Admission HPI Per Admitting Provider 73yo Male with PMH HTN HLD DM2 hx SVT here for syncope. Patient states he was walking in the store with his grandson, without warning he passed out ended up on the floor noted he hurt his back and his hearing aids flew out. EMS was contacted, patient brought to ED, noted some bradycardia. Of note patient follows with cardiology Dr. Hanson for syncopal and near syncopal episodes suspected to be from SVT, initially improved with increased dose diltiazem however no longer helpful. Plan for cardiac ablation 04/13, however it was not performed due to some complication, patient unsure. 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 Patient describes 'hot flash' episodes in the mean time where he did not pass out but felt similar. Denies headache dizziness lightheadedness SOB chest pain abd pain nausea vomiting during these times. POA is Amber. Patient compliant with medication, he denies assistance with medication. Principal Diagnosis Syncope, PSVT, suspected tachybradycardia syndrome Discharge Exam General-alert and oriented x3, no fevers, no chills HEENT-head atraumatic and normocephalic, pupils equal and reactive to light, extraocular muscles intact Neck-no lymphadenopathy or thyromegaly, trachea midline Chest-clear to auscultation percussion. No rales, wheezing or rhonchi. Pacemaker insertion site unremarkable with hemostasis Cardiac-regular rate and rhythm, normal S1 and S2 Abdomen-normal bowel sounds, nontender, no hepatosplenomegaly Extremities-no cyanosis, clubbing, or edema Neuro-cranial nerves II through XII intact, motor and sensory function within normal limits, strength symmetrical , no focal deficits Psych-normal affect, normal mood Discharge Data Allergies Allergy/AdvReac Type Severity Reaction Status Date / Time No Known Allergies Allergy Verified 04/14/23 20:57 Consultations 04/15/23 00:11 ED Decision to Admit Stat 04/15/23 04:06 Consult Cardiology Routine Procedures Performed Operation Date: 04/18/23 10:30 Actual Procedures p Pacer with A/V Leads (Dual) - Rigo Cho MD Ordered Studies 04/14/23 19:59 CT cervical spine wo con Stat CT head/brain wo con Stat 04/18/23 10:00 EP Lab Images for PACS ONCE Hospital Course (1) Syncope: Apparently due to bradycardia. He also has SVT. Permanent pacemaker insertion completed today, April 18. Cardiology consultation and recommendations appreciated. Ablation reattempt at a later date. (2) SVT (supraventricular tachycardia): Telemetry while hospitalized. Continue diltiazem. (3) HLD (hyperlipidemia): Stable. Continue statin therapy (4) HTN (hypertension): Stable. Continue diltiazem (5) Diabetes: ADA diet. Sliding scale coverage. Plan Home today, April 18, after seen by cardiology around 4 PM today Total Time Total Time Spent Total Time Spent (In Minutes): 45-minute Discharge Plan Discharge Items Patient Disposition: Home - Self-Care Reason For Visit: SYNCOPE Discharge Diagnosis: Syncope, PSVT, suspected tachybradycardia syndrome Activity: Resume your previous activity Non-emergency contact: Primary Care Provider and Creative Resource Manager Call non-emergency contact if: you have any medication questions and your symptoms worsen Follow-up/Referrals: Aidan Fuentes MD [Primary Care Provider] - Diet: Carb Consistent or DM2 and Heart Healthy Addtl Attending Provider Instructions: All medications remain the same. See cardiology per their recommendations for pacemaker insertion follow-up Pending Studies at Discharge: No Stand-Alone Forms: My [facility], Smoking Cessation Medications and DC Order Prescriptions: Continued triamcinolone acetonide 0.5 % cream 1 applic topical DAILY PRN (Reason: Itching) alogliptin 25 mg tablet 25 mg PO DAILY atorvastatin 20 mg Tablet 10 mg PO DAILY tamsulosin 0.4 mg Capsule 0.4 mg PO QPM latanoprost 0.005 % Drops 1 drp OPHTHALMIC (EYE) PM metformin 850 mg Tablet 850 mg PO BID timolol maleate 0.5 % drops 1 drp ophthalmic (eye) DAILY cinnamon bark [Cinnamon] 500 mg Capsule 1,000 mg PO QDL diltiazem HCl 240 mg capsule,extended release 24hr 240 mg PO QDL Discharge Orders: Discharge Order (Routine); Ordered 04/18/23 Ordered By: Shukri Choudhury Admission Data Admit Date/Time: 04/15/23 00:42 Attending Provider: Macey,Shukri R. Admit Provider: Nora Munoz Primary Care Provider: Aidan Fuentes Other Providers: Stef Paniagua ; Sandeep Diamond Coding Level of Care Code 47951 INP/OBS DISCH >30 MIN Diagnoses Syncope R55 SVT (supraventricular tachycardia) I47.1 HLD (hyperlipidemia) E78.5 HTN (hypertension) I10 Hypertension type: primary hypertension Diabetes E11.9
--- NOTE | 2023-04-18 16:26 | XRay Report ---
XR chest 2V PA/lateral HISTORY: 73 years-old Male post pacemaker. No lifting left arm status post placement of a left subcl jhoana pacer. COMPARISON: 04/14/2023 TECHNIQUE: PA and lateral views of the chest FINDINGS: Status post placement of a dual lead left subclavian pacer. Cardiac silhouette is enlarged. No pneumo thorax, pleural effusion or airspace consolidation. The bones appear intact. Cholecystectomy. IMPRESSION: Status post placement of a dual lead left subclavian pacer. No postprocedural pneumothora x. ACT 112: Negative or not required by law. The above report was generated using voice recognition software. It may contain grammatical, syntax o r spelling errors. Electronically signed by: Oneil Augustin M.D. 04/18/2023 4:24 PM
== END 2023-04-18 18:15 | disposition home or self-care (01) | DRG 243 ==
LOC: ED 19:00 → SUATTDRO 04-15 00:42 → 2E 04-15 00:42